=== PATIENT | male | born 1960 | race Caucasian/White ===

== ENCOUNTER 2019-01-20 06:27 | Emergency (ER) | payer OTHER ==
[~2019-01-20] VITALS: Ht 180.3 cm; Wt 113.4 kg
[2019-01-20 06:40] VITALS: BP 155/80
[2019-01-20] MEDS ORDERED: IV NORMAL SALINE 1000ML BAG 1,000 ML IV SCH (06:45)
[2019-01-20] MEDS ORDERED: ONDANSETRON PF 4 MG/2 ML VIAL. ONE (06:48)
[2019-01-20] MEDS ORDERED: fentaNYL PF VIAL 100 MCG/2 ML VIAL ONE (06:48)
[2019-01-20 06:56] LABS: BASO # 0.1 x10^3/uL (0.0-0.2); BASO % 1 % (0-3); EOS # 0.1 x10^3/uL (0.0-0.7); EOS % 1 % (0-3); HEMATOCRIT 40.8 % (39.0-53.0); HEMOGLOBIN 13.8 g/dL (13.0-17.5); LYMPH # 2.4 x10^3/uL (1.0-4.8); LYMPH % 20 % (24-48); MEAN CORPUSCULAR HEMOGLOBIN 32 pg (25-35); MEAN CORPUSCULAR HGB CONC 34 g/dL (31-37); MEAN CORPUSCULAR VOLUME 95 fL (79-100); MONO # 0.9 x10^3/uL (0.0-1.1); MONO % 8 % (0-9); NEUT # 8.4 x10^3/uL (1.8-7.7); NEUT % 70 % (31-73); PLATELET COUNT 307 x10^3/uL (140-400); RED CELL DISTRIBUTION WIDTH 14.7 % (11.5-14.5); WHITE BLOOD COUNT 11.9 x10^3/uL (4.0-11.0)
[2019-01-20] MEDS ORDERED: ONDANSETRON PF 4 MG/2 ML VIAL. IV ONE (07:00)
[2019-01-20] MEDS ORDERED: fentaNYL PF VIAL 100 MCG/2 ML VIAL IV ONE (07:00)
[2019-01-20 07:03] LABS: CALCIUM 9.1 mg/dL (8.5-10.1); CREATININE 0.9 mg/dL (0.7-1.3); POTASSIUM 3.3 mmol/L (3.5-5.1)
[2019-01-20 07:09] LABS: ALBUMIN 3.6 g/dL (3.4-5.0); ALBUMIN/GLOBULIN RATIO 0.9 (1.0-1.7); TOTAL BILIRUBIN 0.3 mg/dL (0.2-1.0); TOTAL PROTEIN 7.8 g/dL (6.4-8.2)
[2019-01-20] MEDS ORDERED: KETOROLAC 30 MG/ML VIAL. IV ONE (07:15)
[2019-01-20 07:42] LABS: BILIRUBIN,URINE NEGATIVE (NEG); CLARITY,URINE CLEAR; COLOR,URINE YELLOW; NITRITE,URINE NEGATIVE (NEG); PROTEIN,URINE NEGATIVE (NEG-TRACE); UROBILINOGEN,URINE 0.2 mg/dL (0.2 mg/dL)
[2019-01-20] MEDS ORDERED: HYDROmorphone 2 MG/ML VIAL IV ONE (07:45)
--- NOTE | 2019-01-20 07:51 | RAD ---
Examination: CT of the abdomen pelvis without contrast HISTORY: History of right flank pain COMPARISON: None available. TECHNIQUE: Axial CT images of the abdomen pelvis are performed without contrast. Coronal and sagittal reformats were performed Exposure: One or more of the following individualized dose reduction techniques were utilized for this examination: 1. Automated exposure control 2. Adjustment of the mA and/or kV according to patient size 3. Use of iterative reconstruction technique FINDINGS: Mild honeycombing changes identified in the bibasilar lungs likely prominent reticular interstitial lung markings. The evaluation of the solid organs is limited due to lack of IV contrast. The evaluation of bowel is limited due to lack of oral contrast. No evidence of free air identified in the abdomen. The visualized noncontrasted liver, adrenals grossly appears unremarkable. Calcified granulomas identified in the spleen. The gallbladder is mildly distended. Hyperdensity identified within the mildly distended gallbladder likely sludge or tiny stones. The stomach is minimally distended. The visualized pancreas grossly appears unremarkable. The small bowel is nondilated. Feces and gas noted in the colon. The urinary bladder is mildly distended. Mild right-sided hydronephrosis identified. There is a 4 mm calculus identified at the right ureterovesical junction. There is mild fat stranding identified about the right kidney. Severe degenerative changes identified in the lumbar spine. Lower lumbar hardware is identified. There is bony fusion of the L2-L3 vertebral bodies. Left hip prosthesis is identified. IMPRESSION: 1. 4 mm calculus identified in the right ureterovesical junction causing mild right-sided hydronephrosis and hydroureter. 2. Distended gallbladder with gallbladder sludge. Electronically signed by: Vahid Carter MD (01/20/2019 7:49 AM) [facility]
[2019-01-20 08:01] LABS: BACTERIA,URINE FEW /HPF (0-FEW); SQUAMOUS EPITHELIAL CELL,UR OCC /LPF; WBC,URINE OCC /HPF (0-4)
--- NOTE | 2019-01-20 08:18 | PHYS DOC ---
Past Medical History Past Medical History: Hypertension Past Surgical History: Hip Replacement Alcohol Use: None Drug Use: None Adult General Chief Complaint Chief Complaint: FLANK PAIN HPI HPI Patient is a 58 year old male who presents with complaining of right flank pain. Patient states he woke up at 4:30 this morning because of severe sharp right flank pain as a constant pain under control pain 10 over 10. Patient complaining of nausea without vomiting and denies urinary symptoms, fever and chills, abdominal pain, recent dehydration and history of kidney stone. Review of Systems Review of Systems Constitutional: Denies fever or chills [] Eyes: Denies change in visual acuity, redness, or eye pain [] HENT: Denies nasal congestion or sore throat [] Respiratory: Denies cough or shortness of breath [] Cardiovascular: No additional information not addressed in HPI [] GI: Denies abdominal pain, vomiting, bloody stools or diarrhea, reports nausea. [] : Denies dysuria or hematuria [] Musculoskeletal: Denies back pain or joint pain [] Integument: Denies rash or skin lesions [] Neurologic: Denies headache, focal weakness or sensory changes [] Endocrine: Denies polyuria or polydipsia [] All other systems were reviewed and found to be within normal limits, except as documented in this note. Current Medications Current Medications Current Medications Medications (Trade) Dose Ordered Sig/Baldemar Start Time Stop Time Status Last Admin Dose Admin Fentanyl Citrate (Fentanyl 2ml Vial) 100 mcg STK-MED ONCE 01/20/19 06:48 01/20/19 06:49 DC Hydromorphone HCl (Dilaudid) 1 mg 1X ONCE 01/20/19 07:45 01/20/19 07:46 DC 01/20/19 07:44 1 MG Ketorolac Tromethamine (Toradol 30mg Vial) 30 mg 1X ONCE 01/20/19 07:15 01/20/19 07:16 DC 01/20/19 07:23 30 MG Ondansetron HCl (Zofran) 4 mg STK-MED ONCE 01/20/19 06:48 01/20/19 06:49 DC Potassium Chloride (Klor-Con) 40 meq 1X ONCE 01/20/19 08:45 01/20/19 08:46 DC 01/20/19 09:14 40 MEQ Sodium Chloride 1,000 ml @ 1,000 mls/hr Q1H 01/20/19 06:45 01/20/19 07:44 DC 01/20/19 06:51 1,000 MLS/HR Tamsulosin HCl (Flomax) 0.4 mg 1X STAT 01/20/19 08:35 01/20/19 08:38 DC 01/20/19 09:14 0.4 MG Allergies Allergies Allergies Coded Allergies Type Severity Reaction Last Updated Verified No Known Drug Allergies 01/20/19 No Physical Exam Physical Exam Constitutional: Well developed, well nourished, moderately distress, non-toxic appearance. [] HENT: Normocephalic, atraumatic, oropharynx moist. Eyes: PERRLA, EOMI, conjunctiva normal, no discharge. [] Neck: Normal range of motion, no tenderness, supple, no stridor. [] Cardiovascular:Heart rate regular rhythm, no murmur [] Lungs & Thorax: Bilateral breath sounds clear to auscultation [] Abdomen: Bowel sounds normal, soft, no tenderness, no masses, no pulsatile masses. [] Skin: Warm, dry, no erythema, no rash. [] Back: No tenderness, no CVA tenderness. [] Extremities: No tenderness, no cyanosis, no clubbing, ROM intact, no edema. [] Neurologic: Alert and oriented X 3, normal motor function, normal sensory function, no focal deficits noted. [] Psychologic: Affect normal, judgement normal, mood normal. [] Current Patient Data Vital Signs Vital Signs Date Time Temp Pulse Resp B/P (MAP) Pulse Ox O2 Delivery O2 Flow Rate FiO2 01/20/19 06:51 16 98 Room Air 01/20/19 06:40 99.5 89 155/80 (105) 99.5 Lab Values Laboratory Tests Test 01/20/19 06:43 01/20/19 07:20 White Blood Count 11.9 x10^3/uL (4.0-11.0) H Red Blood Count 4.30 x10^6/uL (4.30-5.70) Hemoglobin 13.8 g/dL (13.0-17.5) Hematocrit 40.8 % (39.0-53.0) Mean Corpuscular Volume 95 fL (79-100) Mean Corpuscular Hemoglobin 32 pg (25-35) Mean Corpuscular Hemoglobin Concent 34 g/dL (31-37) Red Cell Distribution Width 14.7 % (11.5-14.5) H Platelet Count 307 x10^3/uL (140-400) Neutrophils (%) (Auto) 70 % (31-73) Lymphocytes (%) (Auto) 20 % (24-48) L Monocytes (%) (Auto) 8 % (0-9) Eosinophils (%) (Auto) 1 % (0-3) Basophils (%) (Auto) 1 % (0-3) Neutrophils # (Auto) 8.4 x10^3/uL (1.8-7.7) H Lymphocytes # (Auto) 2.4 x10^3/uL (1.0-4.8) Monocytes # (Auto) 0.9 x10^3/uL (0.0-1.1) Eosinophils # (Auto) 0.1 x10^3/uL (0.0-0.7) Basophils # (Auto) 0.1 x10^3/uL (0.0-0.2) Sodium Level 141 mmol/L (136-145) Potassium Level 3.3 mmol/L (3.5-5.1) L Chloride Level 104 mmol/L (98-107) Carbon Dioxide Level 26 mmol/L (21-32) Anion Gap 11 (6-14) Blood Urea Nitrogen 15 mg/dL (8-26) Creatinine 0.9 mg/dL (0.7-1.3) Estimated GFR (Cockcroft-Gault) 87.0 BUN/Creatinine Ratio 17 (6-20) Glucose Level 118 mg/dL (70-99) H Calcium Level 9.1 mg/dL (8.5-10.1) Total Bilirubin 0.3 mg/dL (0.2-1.0) Aspartate Amino Transferase (AST) 22 U/L (15-37) Alanine Aminotransferase (ALT) 25 U/L (16-63) Alkaline Phosphatase 59 U/L (46-116) Total Protein 7.8 g/dL (6.4-8.2) Albumin 3.6 g/dL (3.4-5.0) Albumin/Globulin Ratio 0.9 (1.0-1.7) L Urine Collection Type Unknown Urine Color Yellow Urine Clarity Clear Urine pH 5.0 Urine Specific Morral >=1.030 Urine Protein Negative mg/dL (NEG-TRACE) Urine Glucose (UA) Negative mg/dL (NEG) Urine Ketones (Stick) Negative mg/dL (NEG) Urine Blood Large (NEG) Urine Nitrite Negative (NEG) Urine Bilirubin Negative (NEG) Urine Urobilinogen Dipstick 0.2 mg/dL (0.2 mg/dL) Urine Leukocyte Esterase Negative (NEG) Urine RBC 11-20 /HPF (0-2) Urine WBC Occ /HPF (0-4) Urine Squamous Epithelial Cells Occ /LPF Urine Bacteria Few /HPF (0-FEW) Urine Mucus Slight /LPF Laboratory Tests 01/20/19 06:43 Laboratory Tests 01/20/19 06:43 EKG EKG [] Radiology/Procedures Radiology/Procedures [facility] [address] [place] [address] IMAGING REPORT Signed PATIENT: KIRAN DIAZ ACCOUNT: [id number] : 1960 LOCATION: ER AGE: 58 SEX: M EXAM STATUS: REG ER ORD. PHYSICIAN: MARY MARADIAGA MD REASON: right flank pain PROCEDURE: CT ABDOMEN PELVIS WO CONTRAST Examination: CT of the abdomen pelvis without contrast HISTORY: History of right flank pain COMPARISON: None available. TECHNIQUE: Axial CT images of the abdomen pelvis are performed without contrast. Coronal and sagittal reformats were performed Exposure: One or more of the following individualized dose reduction techniques were utilized for this examination: 1. Automated exposure control 2. Adjustment of the mA and/or kV according to patient size 3. Use of iterative reconstruction technique FINDINGS: Mild honeycombing changes identified in the bibasilar lungs likely prominent reticular interstitial lung markings. The evaluation of the solid organs is limited due to lack of IV contrast. The evaluation of bowel is limited due to lack of oral contrast. No evidence of free air identified in the abdomen. The visualized noncontrasted liver, adrenals grossly appears unremarkable. Calcified granulomas identified in the spleen. The gallbladder is mildly distended. Hyperdensity identified within the mildly distended gallbladder likely sludge or tiny stones. The stomach is minimally distended. The visualized pancreas grossly appears unremarkable. The small bowel is nondilated. Feces and gas noted in the colon. The urinary bladder is mildly distended. Mild right-sided hydronephrosis identified. There is a 4 mm calculus identified at the right ureterovesical junction. There is mild fat stranding identified about the right kidney. Severe degenerative changes identified in the lumbar spine. Lower lumbar hardware is identified. There is bony fusion of the L2-L3 vertebral bodies. Left hip prosthesis is identified. IMPRESSION: 1. 4 mm calculus identified in the right ureterovesical junction causing mild right-sided hydronephrosis and hydroureter. 2. Distended gallbladder with gallbladder sludge. Electronically signed by: Vahid Carter MD (01/20/2019 7:49 AM) [facility] DICTATED and SIGNED BY: VAHID CARTER MD DATE: 01/20/19 0749 Course & Med Decision Making Course & Med Decision Making Pertinent Labs and Imaging studies reviewed. (See chart for details) Evaluation of patient in ER showed 58-year-old male patient with onset of right flank pain. Patient had IV fluid, Zofran, fentanyl, Toradol and Dilaudid with improvement of his pain. Labs showed mild hypokalemia and hematuria. CT of abdomen and pelvis showed 4 mm stone in the UV junction with mild hydronephrosis. Patient was informed about the test results needs to increase fluid intake and activity and follow up with urologist. Urine strainer was provided. I've spoken with the patient and/or caregivers. I've explained the patient's condition, diagnosis and treatment plan based on information available to me at this time. I've answered the patient's and/or caregivers questions and addressed any concerns. The patient and/or caregivers have a good understanding the patient's diagnosis, condition and treatment plan as can be expected at this point. Vital signs have been stabilized. The patient's condition is stable for discharge from the emergency department. The patient will pursue further outpatient evaluation with her primary care provider or other designated consulting physician as outlined in the discharge instructions. Patient and/or caregivers are agreeable to this plan of care and follow-up instructions have been explained in detail. The patient and/or caregi vers have received these instructions in written format and expressed understanding of these discharge instructions. The patient and her caregivers are aware that if any significant change in condition or worsening of symptoms should prompt him to immediately return to this of the closest emergency department. If an emergent department is not readily available I would encourage him to call 911. Jany Disclaimer Jany Disclaimer This electronic medical record was generated, in whole or in part, using a voice recognition dictation system. Departure Departure Impression: Primary Impression: Renal colic on right side Additional Impressions: Ureterolithiasis Hypokalemia Disposition: HOME, SELF-CARE (0 FRANK) Condition: IMPROVED Referrals: UNKNOWN PCP NAME (PCP) Patient Instructions: Diet for Kidney Stones, Hypokalemia, Kidney Stones Additional Instructions: Drink plenty of liquids Follow-up with your primary care physician in 3-5 days Return to ER if not getting better Follow-up with on-call urologist tomorrow Strain all of your urine Continue home hydrocodone for pain Scripts Ibuprofen (IBUPROFEN) 800 Mg Tablet 800 MG PO PRN Q8HRS PRN for INFLAMMATION, #20 TAB Prov: MARY MARADIAGA MD 01/20/19 Tamsulosin Hcl (FLOMAX) 0.4 Mg Cap.er.24h 1 CAP PO DAILY, #14 CAP 0 Refills Prov: MARY MARADIAGA MD 01/20/19 Problem Qualifiers MARY MARADIAGA MD Jan 20, 2019 08:18
[2019-01-20] MEDS ORDERED: TAMSULOSIN 0.4 MG CAP.ER.24H. PO STA (08:35)
[2019-01-20] MEDS ORDERED: POTASSIUM CHLORIDE 20 MEQ TABLET.ER. PO ONE (08:45)
[2019-01-20] MEDS ORDERED: TAMS0.4C97 PO (08:50)
[2019-01-20] MEDS ORDERED: IBUP-1060 PO (08:50)
== END 2019-01-20 09:29 | disposition home or self-care (01) ==
LOC: ER 06:27
DX: N13.2 Hydronephrosis with renal and ureteral calculous obstruction (principal); E87.6 Hypokalemia; I10 Essential (primary) hypertension; Z96.649 Presence of unspecified artificial hip joint
CPT/HCPCS: 36415; 74176; 80053; 81001; 85025; 96374; 96375; 99285; J1170; J1885; J2405; J3010; J7030

== ENCOUNTER → 2021-05-19 | Outpatient (CLI) | payer MEDICARE, OTHER ==
[~2021-05-19] MED LIST: IBUP-1060 PO; TAMS0.4C97 PO
--- NOTE | 2021-05-21 09:41 | RAD ---
Right lower extremity arterial duplex ultrasound 05/21/2021 INDICATION: Right lateral mid calf ulcer x2 months. COMPARISON STUDY: None. Discussion: Ultrasound evaluation of the major arteries of the right lower extremity was performed in cluding color Doppler imaging spectral analysis. Patchy areas of atherosclerotic vascular calcification is seen throughout the major arteries of the r ight lower extremity. Normal waveform morphology is seen throughout the major arteries of the right l ower extremity. No focal elevation in velocity consistent hemodynamically significant atherosclerotic vascular narrowing is seen. Right common femoral artery is patent. Right deep femoral artery is patent Right SFA is patent. Right popliteal artery is calcified but patent. Right posterior tibial artery is patent. Right peroneal artery is patent. Right dorsalis pedis artery is patent. IMPRESSION: Mild diffuse atherosclerotic vascular disease without sonographic evidence of hemodynamic ally significant stenosis involving the major arteries of the right lower extremity Electronically signed by: Benny Teixeira MD (05/21/2021 9:38 AM) [id number]
== END ==
LOC: US 09:34
PROVIDERS: ATTEND Nurse Practitioner Family
DX: I70.201 Unspecified atherosclerosis of native arteries of extremities, right leg (principal); L97.219 Non-pressure chronic ulcer of right calf with unspecified severity; M79.89 Other specified soft tissue disorders
CPT/HCPCS: 93922; 93926

== ENCOUNTER 2021-08-30 10:06 | Observation (INO) | payer MEDICARE, OTHER ==
[~2021-08-30] VITALS: Ht 182.9 cm; Wt 116.0 kg
--- NOTE | 2021-08-30 10:29 | PHYS DOC ---
Past Medical History Past Medical History: Hypertension Past Surgical History: Hip Replacement Smoking Status: Never Smoker Alcohol Use: None Drug Use: None General Adult EDM: Chief Complaint: CHEST PAIN HPI: HPI: Patient is a 61 year old male who presents with 24 hours of intermittent left- sided chest pain that is sharp and shooting and goes into his armpit. He states he "might" have felt palpitations on his way here. He states movement does not make it worse and it does not hurt only with breathing. He states that he could just be sitting there and it begins. He is not on blood thinners and has not taken any aspirin. He has not yet taken his blood pressure medication this morning. He cannot remember the name of the blood pressure medication he is currently on. Rates his pain currently a 5 out of 10. States he has had some shortness of breath over the last month. Patient denies fever, cough, abdominal pain, nausea, vomiting, diarrhea, back pain, headache, syncope, dizziness, injury to his chest or any heavy lifting, numbness or tingling, focal weakness, vision change. History of chronic back pain, cellulitis of his leg with ulceration, high blood pressure. Review of Systems: Review of Systems: Constitutional: Denies fever or chills. [] Eyes: Denies change in visual acuity. [] HENT: Denies nasal congestion or sore throat. [] Respiratory: Denies cough or +shortness of breath x1 month. [] Cardiovascular: + chest pain or denies edema. [] GI: Denies abdominal pain, nausea, vomiting, bloody stools or diarrhea. [] : Denies dysuria. [] Musculoskeletal: Denies back pain or joint pain. [] Integument: Denies rash. [] Neurologic: Denies headache, focal weakness or sensory changes. [] Endocrine: Denies polyuria or polydipsia. [] Lymphatic: Denies swollen glands. [] Psychiatric: Denies depression or anxiety. [] Heart Score: C/O Chest Pain: Yes HEART Score for Chest Pain: HEART Score for Chest Pain Response (Comments) Value History Moderately Suspicious 1 ECG Nonspecific Repolarizatio 1 Age >45 - < 65 1 Risk Factors 1 or 2 Risk Factors 1 Troponin < Normal Limit 0 Total 4 Risk Factors: Risk Factors: DM, Current or recent (<one month) smoker, HTN, HLP, family history of CAD, obesity. Risk Scores: Score 0 - 3: 2.5% MACE over next 6 weeks - Discharge Home Score 4 - 6: 20.3% MACE over next 6 weeks - Admit for Clinical Observation Score 7 - 10: 72.7% MACE over next 6 weeks - Early Invasive Strategies Allergies: Allergies: Allergies Coded Allergies Type Severity Reaction Last Updated Verified No Known Drug Allergies 08/30/21 No Physical Exam: PE: Constitutional: Well developed, well nourished, no acute distress, non-toxic appearance. [] HENT: Normocephalic, atraumatic, bilateral external ears normal, oropharynx moist, no oral exudates, nose normal. [] Eyes: PERRLA, EOMI, conjunctiva normal, no discharge. [] Neck: Normal range of motion, no tenderness, supple, no stridor. [] Cardiovascular:Heart rate regular tachycardia rhythm, no murmur [] Lungs & Thorax: Bilateral upper breath sounds clear and lower diminished to auscultation [] Abdomen: Bowel sounds normal, soft, no tenderness, no masses, no pulsatile masses. [] Skin: Warm, dry, no erythema, no rash. [] Back: No tenderness, no CVA tenderness. [] Extremities: No tenderness, no cyanosis, no clubbing, ROM intact, no edema. [] Neurologic: Alert and oriented X 3, normal motor function, normal sensory function, no focal deficits noted. [] Psychologic: Affect normal, judgement normal, mood normal. [] EKG: EK AND READ BY DR PATEL SINUS RHYTHM AND NO STEMI [address] PATEL SINUS RHYTHM AND NO STEMI Radiology/Procedures: Radiology/Procedures: [] Impression: [facility] [address] [place], [place] [id number] IMAGING REPORT Signed PATIENT: KIRAN DIAZ PACCOUNT: [id number] : 1960 LOCATION: ER AGE: 61 SEX: M EXAM STATUS: PRE ER ORD. PHYSICIAN: ESTHER VARNER APRN REASON: CHEST PAIN PROCEDURE: PORTABLE CHEST 1V EXAM: Chest, single view. HISTORY: Chest pain. COMPARISON: None. FINDINGS: A frontal view of the chest is obtained. There is diffuse interstitial infiltrate. There is a small right pleural effusion. The heart is normal in size. There is no pneumothorax. There are multiple chronic appearing rib fractures. IMPRESSION: Diffuse interstitial infiltrate and small right pleural effusion. This may be superimposed on chronic interstitial changes. Electronically signed by: Jackie Kemp MD (08/30/2021 10:36 AM) [id number] DICTATED and SIGNED BY: JACKIE KEMP MD DATE: 08/30/21 [id number] [facility] [address] [place] [address] IMAGING REPORT Signed PATIENT: KIRAN DIAZ PACCOUNT: [id number] : 1960 LOCATION: ER AGE: 61 SEX: M EXAM STATUS: REG ER ORD. PHYSICIAN: ESTHER VARNER APRN REASON: TACHYCARDIA, CHEST PAIN, SOA PROCEDURE: CT ANGIOGRAPHY CHEST CTA CHEST INDICATION: TACHYCARDIA, CHEST PAIN, SOA. OMNI 350 100 MLS injected twice, poor vascular flow / History: . Comparison: None. TECHNIQUE: Following the uneventful administration of intravenous contrast, 100 cc Omnipaque 350, axial CT sections were obtained through the lungs and upper abdomen. Multiplanar reconstructions and MIP images were obtained. PQRS compliance statement: One or more of the following individualized dose reduction techniques were utilized for this examination: 1. Automated exposure control 2. Adjustment of the mA and/or kV according to patient size 3. Use of iterative reconstruction technique FINDINGS: Pulmonary arteries: No large central pulmonary thromboembolic disease. Segmental and subsegmental branches not well evaluated due to suboptimal contrast opacification. Lungs and Airways: No pulmonary mass or consolidation. Bilateral subpleural reticulation, architectural distortion, and lower lung predominant traction bronchiectasis. Honeycombing in the lung bases. Pleura: The pleural spaces are normal. Heart and Mediastinum: The visualized thyroid is normal in size and attenuation. No axillary or supraclavicular lymphadenopathy. No mediastinal, hilar or retrocrural lymphadenopathy. Calcified mediastinal and hilar lymph nodes consistent with remote granulomatous disease. Normal cardiac size. Coronary artery atherosclerotic disease. Normal caliber thoracic aorta. Diminutive calcified SVC. Prominent chest wall and mediastinal venous collaterals.. Abdomen: Cholelithiasis. Bones and Soft Tissues: Degenerative changes of the spine. Gynecomastia. IMPRESSION: 1. No large central pulmonary thromboembolic disease. Segmental and subsegmental branches not well evaluated due to suboptimal contrast opacification. 2. Findings of interstitial lung disease. 3. 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 Electronically signed by: Steve Mars MD (08/30/2021 12:10 PM) [id number] DICTATED and SIGNED BY: STEVE MARS MD DATE: 08/30/21 [id number] Course & Med Decision Making: Course & Med Decision Making Pertinent Labs and Imaging studies reviewed. (See chart for details) See HPI. Alert and oriented x4. Ambulatory steady gait. Speaks in full clear sentences. No extremity edema. Afebrile. Skin pink warm and dry. Chest pain is not reproducible with palpation or movement. Lungs are clear developed and diminished in lower lobes. He is tachycardic. Blood work so far is unremarkable. His heart score is a 4. Nitro did help with his chest pain. CT chest showed: IMPRESSION: 1. No large central pulmonary thromboembolic disease. Segmental and subsegmental branches not well evaluated due to suboptimal contrast opacification. 2. Findings of interstitial lung disease. 3. 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 Chest x-ray showed: Possible new infiltrate on top of his chronic interstitial lung disease. Patient will be admitted for for chest pain rule out. I went ahead and started antibiotics for infiltrates. He is satting around 93% on room air. Patient does have a white count of 13. 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 [] Dragon Disclaimer: Dragethel Disclaimer: This electronic medical record was generated, in whole or in part, using a voice recognition dictation system. Departure Departure Impression: Primary Impression: Pleural effusion associated with pulmonary infection Additional Impression: Chest pain Qualified Codes: R07.9 - Chest pain, unspecified Disposition: ADMITTED INPATIENT Admitting Physician: JACI Condition: STABLE Referrals: UNKNOWN PCP NAME (PCP) ESTHER VARNER APRN Aug 30, 2021 10:28
[2021-08-30] MEDS ORDERED: IV NORMAL SALINE 1000ML BAG 1,000 ML IV SCH (10:30)
[2021-08-30] MEDS ORDERED: ASPIRIN 325 MG TABLET PO ONE (10:30)
[2021-08-30] MEDS ORDERED: NITROGLYCERIN SUBLINGUAL 0.4 MG BOTTLE OF 25. SL PRN (10:30)
[2021-08-30 10:38] LABS: BASO # 0.1 x10^3/uL (0.0-0.2); BASO % 1 % (0-3); EOS # 0.2 x10^3/uL (0.0-0.7); EOS % 2 % (0-3); HEMOGLOBIN 15.9 g/dL (13.0-17.5); LYMPH # 2.4 x10^3/uL (1.0-4.8); LYMPH % 19 % (24-48); MEAN CORPUSCULAR HEMOGLOBIN 32 pg (25-35); MEAN CORPUSCULAR HGB CONC 33 g/dL (31-37); MEAN CORPUSCULAR VOLUME 96 fL (79-100); MONO # 1.3 x10^3/uL (0.0-1.1); MONO % 10 % (0-9); NEUT # 8.9 x10^3/uL (1.8-7.7); NEUT % 69 % (31-73); PLATELET COUNT 350 x10^3/uL (140-400); RED BLOOD COUNT 5.01 x10^6/uL (4.30-5.70); RED CELL DISTRIBUTION WIDTH 13.9 % (11.5-14.5)
--- NOTE | 2021-08-30 10:38 | RAD ---
EXAM: Chest, single view. HISTORY: Chest pain. COMPARISON: None. FINDINGS: A frontal view of the chest is obtained. There is diffuse interstitial infiltrate. There is a small right pleural effusion. The heart is normal in size. There is no pneumothorax. There are mul tiple chronic appearing rib fractures. IMPRESSION: Diffuse interstitial infiltrate and small right pleural effusion. This may be superimpose d on chronic interstitial changes. Electronically signed by: Jackie Hills MD (08/30/2021 10:36 AM) [id number]
[2021-08-30 10:45] LABS: CALCIUM 8.9 mg/dL (8.5-10.1); CREATININE 0.9 mg/dL (0.7-1.3); GFR 86.1; POTASSIUM 3.9 mmol/L (3.5-5.1)
[2021-08-30 10:51] LABS: ALBUMIN/GLOBULIN RATIO 0.9 (1.0-1.7); MAGNESIUM 1.9 mg/dL (1.8-2.4); TOTAL BILIRUBIN 0.5 mg/dL (0.2-1.0); TOTAL PROTEIN 8.5 g/dL (6.4-8.2)
[2021-08-30] MEDS ORDERED: IOHEXOL 350 MG/ML 100 ML VIAL. IV ONE (11:00)
[2021-08-30] MEDS ORDERED: CONTRAST GIVEN. MC PRN (11:15)
--- NOTE | 2021-08-30 12:12 | RAD ---
CTA CHEST INDICATION: TACHYCARDIA, CHEST PAIN, SOA. OMNI 350 100 MLS injected twice, poor vascular flow / His tory: . Comparison: None. TECHNIQUE: Following the uneventful administration of intravenous contrast, 100 cc Omnipaque 350, axi al CT sections were obtained through the lungs and upper abdomen. Multiplanar reconstructions and MIP images were obtained. PQRS compliance statement: One or more of the following individualized dose reduction techniques were utilized for this examinat ion: 1. Automated exposure control 2. Adjustment of the mA and/or kV according to patient size 3. Use of iterative reconstruction technique FINDINGS: Pulmonary arteries: No large central pulmonary thromboembolic disease. Segmental and subsegmental bra nches not well evaluated due to suboptimal contrast opacification. Lungs and Airways: No pulmonary mass or consolidation. Bilateral subpleural reticulation, architectur al distortion, and lower lung predominant traction bronchiectasis. Honeycombing in the lung bases. Pleura: The pleural spaces are normal. Heart and Mediastinum: The visualized thyroid is normal in size and attenuation. No axillary or supra clavicular lymphadenopathy. No mediastinal, hilar or retrocrural lymphadenopathy. Calcified mediastin al and hilar lymph nodes consistent with remote granulomatous disease. Normal cardiac size. Coronary artery atherosclerotic disease. Normal caliber thoracic aorta. Diminutive calcified SVC. Prominent ch est wall and mediastinal venous collaterals.. Abdomen: Cholelithiasis. Bones and Soft Tissues: Degenerative changes of the spine. Gynecomastia. IMPRESSION: 1. No large central pulmonary thromboembolic disease. Segmental and subsegmental branches not well ev aluated due to suboptimal contrast opacification. 2. Findings of interstitial lung disease. 3. Diminutive calcified SVC with prominent chest wall and mediastinal venous collaterals, likely high reach operator porsha SVC occlusion. Electronically signed by: Humble Mars MD (08/30/2021 12:10 PM) [id number]
[2021-08-30] MEDS ORDERED: cefTRIAXone IV Push 1 GM VIAL. IVP ONE (13:30)
[2021-08-30] MEDS ORDERED: AZITHROMYCIN 500 MG in IV NORMAL SALINE 250ML 250 ML IV ONE (13:30)
[2021-08-30] MEDS ORDERED: CALCIUM CARBONATE 500 MG TAB.CHEW PO PRN (14:00)
[2021-08-30] MEDS ORDERED: oxyCODONE/APAP 5/325 1 TAB TABLET PO PRN ×2 (14:00)
[2021-08-30] MEDS ORDERED: ELECTROLYTE (NON-ICU) PROTOCOL. MC PRN (14:00)
[2021-08-30] MEDS ORDERED: ONDANSETRON PF 4 MG/2 ML VIAL. IVP PRN (14:00)
[2021-08-30] MEDS ORDERED: ZOLPIDEM 5 MG TABLET. PO PRN (14:00)
[2021-08-30 14:02] LABS: INFLUENZA A PATIENT NEGATIVE (NEGATIVE); INFLUENZA B PATIENT NEGATIVE (NEGATIVE)
[2021-08-30 14:10] LABS: BILIRUBIN,URINE NEGATIVE (NEG); CLARITY,URINE CLEAR; COLOR,URINE YELLOW; NITRITE,URINE NEGATIVE (NEG); PROTEIN,URINE NEGATIVE (NEG-TRACE); UROBILINOGEN,URINE 0.2 mg/dL (0.2 mg/dL)
[2021-08-30 14:18] LABS: BARBITURATES NEG (NEG); BENZODIAZEPINES NEG (NEG); CANNABINOIDS NEG (NEG); COCAINE NEG (NEG); METHADONE NEG (NEG); OPIATES NEG (NEG); PHENCYCLIDINE NEG (NEG)
[2021-08-30 14:19] LABS: AMPHETAMINE/METHAMPHETAMINE NEG (NEG)
[2021-08-30 14:21] LABS: BACTERIA,URINE 0 /HPF (0-FEW); RBC,URINE 0 /HPF (0-2); WBC,URINE 0 /HPF (0-4)
[2021-08-30] MEDS: TAMSULOSIN 0.4 MG CAP.ER.24H. PO SCH (15:37)
[2021-08-30] MEDS: HEPARIN for SUB-Q USE 5,000 UNIT/ML VIAL. SQ SCH ×2 (15:39→21:14)
[2021-08-30] MEDS ORDERED: TIZA4CAP PO (16:32)
[2021-08-30] MEDS ORDERED: LISI20TA18 PO (16:32)
[2021-08-30] MEDS ORDERED: ASPI-630 PO (16:32)
[2021-08-30] MEDS ORDERED: AMLO-186 PO (16:32)
[2021-08-30] MEDS ORDERED: TRIA1TAB3 PO (16:32)
[2021-08-30] MEDS ORDERED: SIMV20TA18 PO (16:32)
[2021-08-30] MEDS ORDERED: ACET325T9 PO (16:32)
[2021-08-30 16:40] VITALS: BP 141/73
[2021-08-30] MEDS ORDERED: tiZANidine 4 MG TABLET. PO PRN (17:00)
--- NOTE | 2021-08-30 17:53 | PDOC1 ---
History and Physical Date of Service: DOS: DATE: 08/30/21 TIME: 17:43 Chief Complaint: Chief Complain: SOB, chest pain History of Present Illness: HPI: Patient is a 61-year-old white male presented to the emergency room today due to 1 day history of chest pain and 1 month history of shortness of breath. Patient reports that yesterday started having left-sided chest pain with radiation into his left axilla. No rhyme or reason to when it starts according to him. Not particularly worse with exertion and he says he definitely has the pain at rest as well. He does have a history of hypertension. Denies any specific cardiac history, no irregular heartbeat no home blood thinners. CT scan in the emergency room showed interstitial lung disease. Patient denies any history of smoking. 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 Said it was 3 months at a time for a total of 9 months. Reports it was very nahomy he said they frequently would take their masks off when they clogged up after a few minutes of wearing. Past Medical/Surgical History: PMH/PSH: Past Medical History: Hypertension Past Surgical History: Hip Replacement Smoking Status: Never Smoker Alcohol Use: None Drug Use: None Allergies: Allergies: Coded Allergies: No Known Drug Allergies (Unverified , 08/30/21) Family History: Family History: HTN Current Medications: Current Medications Current Medications Aspirin (Elio Aspirin) 325 mg 1X ONCE PO Last administered on 08/30/21at 10:50; Start 08/30/21 at 10:30; Stop 08/30/21 at 10:31; Status DC Sodium Chloride 1,000 ml @ 1,000 mls/hr Q1H IV Last administered on 08/30/21at 10:49; Start 08/30/21 at 10:30; Stop 08/30/21 at 11:29; Status DC Nitroglycerin (Nitrostat) 0.4 mg PRN Q5MIN PRN SL CHEST PAIN Last administered on 08/30/21at 10:50; Start 08/30/21 at 10:30 Iohexol (Omnipaque 350 Mg/ml) 100 ml 1X ONCE IV Last administered on 08/30/21at 11:19; Start 08/30/21 at 11:00; Stop 08/30/21 at 11:03; Status DC Info (CONTRAST GIVEN -- Rx MONITORING) 1 each PRN DAILY PRN MC SEE COMMENTS; Start 08/30/21 at 11:15; Stop 09/01/21 at 11:14 Azithromycin 500 mg/Sodium Chloride 250 ml @ 250 mls/hr 1X ONCE IV Last administered on 08/30/21at 13:30; Start 08/30/21 at 13:30; Stop 08/30/21 at 14:29; Status DC Ceftriaxone Sodium (Rocephin) 1 gm 1X ONCE IVP Last administered on 08/30/21at 14:18; Start 08/30/21 at 13:30; Stop 08/30/21 at 13:31; Status DC Tamsulosin HCl (Flomax) 0.4 mg DAILY PO Last administered on 08/30/21at 15:37; Start 08/30/21 at 15:00 Ondansetron HCl (Zofran) 4 mg PRN Q6HRS PRN IVP NAUSEA/VOMITING; Start 08/30/21 at 14:00 Calcium Carbonate/ Glycine (Tums) 500 mg PRN Q3HRS PRN PO UPSET STOMACH; Start 08/30/21 at 14:00 Zolpidem Tartrate (Ambien) 5 mg PRN QHS PRN PO INSOMNIA, MAY REPEAT IN 1HR; Start 08/30/21 at 14:00 Info (Non-Icu Electrolyte Protocol) 1 ea PRN DAILY PRN MC SEE COMMENTS; Start 08/30/21 at 14:00 Oxycodone/ Acetaminophen (Percocet 5/325) 1 tab PRN Q4HRS PRN PO MILD PAIN, 1ST CHOICE; Start 08/30/21 at 14:00 Oxycodone/ Acetaminophen (Percocet 5/325) 2 tab PRN Q4HRS PRN PO MODERATE PAIN, SEVERE PAIN; Start 08/30/21 at 14:00 Acetaminophen (Tylenol) 650 mg PRN Q6HRS PRN PO Headaches, Temp > 101.5F; Start 08/30/21 at 14:00 Senna/Docusate Sodium (Senna Plus) 1 tab BID PO ; Start 08/30/21 at 21:00 Heparin Sodium (Porcine) (Heparin Sodium) 5,000 unit Q8HRS SQ Last administered on 2/21/22at 15:39; Start 08/30/21 at 14:00 Amlodipine Besylate (Norvasc) 5 mg DAILY PO ; Start 08/31/21 at 09:00 Aspirin (Aspirin Chewable) 81 mg DAILY PO ; Start 08/31/21 at 09:00 Lisinopril (Prinivil) 20 mg DAILY PO ; Start 08/31/21 at 09:00 Simvastatin (Zocor) 20 mg HS PO ; Start 08/30/21 at 21:00 Triamterene/HCTZ (Maxzide 37.5/ 25mg) 1 tab DAILY PO ; Start 08/31/21 at 09:00 Tizanidine HCl (Zanaflex) 4 mg PRN BID PRN PO MUSCLE SPASMS; Start 08/30/21 at 17:00 Active Scripts Active Reported Tylenol (Acetaminophen) 325 Mg Tablet 500 Mg PO PRN Q6HRS PRN Aspirin 81 Mg Tab.chew 81 Mg PO DAILY Tizanidine Hcl 4 Mg Capsule 4 Mg PO BID PRN Amlodipine Besylate 5 Mg Tablet 5 Mg PO DAILY Simvastatin 20 Mg Tablet 20 Mg PO HS Triamterene-Hctz 37.5-25 Mg Tb (Triamterene/Hydrochlorothiazid) 1 Each Tablet 1 Tab PO DAILY Lisinopril 20 Mg Tablet 20 Mg PO DAILY ROS: Review of Systems Review of System Unless noted in HPI 14 point review of systems was negative Physical Exam: Vital Signs: Vital Signs Date Time Temp Pulse Resp B/P (MAP) Pulse Ox O2 Delivery O2 Flow Rate FiO2 08/30/21 16:40 98.3 89 17 141/73 (95) 94 Room Air 98.3 Physcial Exam: GEN: No apparent distress. Alert and oriented HEENT: Normal cephalic, atraumatic, external auditory canals are patent EYES: Extraocular muscles are intact, pupil are equally round and reactive to light and accommodation MUSCULOSKELETAL: Well developed , well nourished, good range of motion ENDOCRINE: No thyromegaly was palpated LYMPHATICS: No cervical chain or axillary nodes were noted HEMATOPOIETIC: No bruising NECK: Supple, no JVD, no thyromegaly was noted LUNGS: Clear to auscultation in all lung peters without rhonchi or wheezing HEART: RRR, S!, S2 present. Peripheral pulses intact, no obvious murmurs noted ABDOMEN: Soft, nontender. Positive bowel sounds, no organomegaly, normal bowel sounds EXTREMITIES: Chronic changes from previous wounds NEUROLOGIC: Normal speech and tone. A&O x 3, moves all extremities, no obvious focal deficits PSYCHIATRIC: Normal affect, normal mood. Stable SKIN: No ulcerations or rashes, good skin turgor, no jaundice VASCULAR: Good capillary refill, neurovascular bundle appears to be intact Labs: Labs: Laboratory Tests Test 08/30/21 10:15 08/30/21 13:25 08/30/21 13:30 08/30/21 13:50 White Blood Count 13.0 x10^3/uL (4.0-11.0) Red Blood Count 5.01 x10^6/uL (4.30-5.70) Hemoglobin 15.9 g/dL (13.0-17.5) Hematocrit 48.0 % (39.0-53.0) Mean Corpuscular Volume 96 fL (79-100) Mean Corpuscular Hemoglobin 32 pg (25-35) Mean Corpuscular Hemoglobin Concent 33 g/dL (31-37) Red Cell Distribution Width 13.9 % (11.5-14.5) Platelet Count 350 x10^3/uL (140-400) Neutrophils (%) (Auto) 69 % (31-73) Lymphocytes (%) (Auto) 19 % (24-48) Monocytes (%) (Auto) 10 % (0-9) Eosinophils (%) (Auto) 2 % (0-3) Basophils (%) (Auto) 1 % (0-3) Neutrophils # (Auto) 8.9 x10^3/uL (1.8-7.7) Lymphocytes # (Auto) 2.4 x10^3/uL (1.0-4.8) Monocytes # (Auto) 1.3 x10^3/uL (0.0-1.1) Eosinophils # (Auto) 0.2 x10^3/uL (0.0-0.7) Basophils # (Auto) 0.1 x10^3/uL (0.0-0.2) Sodium Level 135 mmol/L (136-145) Potassium Level 3.9 mmol/L (3.5-5.1) Chloride Level 98 mmol/L (98-107) Carbon Dioxide Level 26 mmol/L (21-32) Anion Gap 11 (6-14) Blood Urea Nitrogen 19 mg/dL (8-26) Creatinine 0.9 mg/dL (0.7-1.3) Estimated GFR (Cockcroft-Gault) 86.1 BUN/Creatinine Ratio 21 (6-20) Glucose Level 93 mg/dL (70-99) Calcium Level 8.9 mg/dL (8.5-10.1) Magnesium Level 1.9 mg/dL (1.8-2.4) Total Bilirubin 0.5 mg/dL (0.2-1.0) Aspartate Amino Transf (AST/SGOT) 37 U/L (15-37) Alanine Aminotransferase (ALT/SGPT) 34 U/L (16-63) Alkaline Phosphatase 70 U/L (46-116) Troponin I High Sensitivity 11 ng/L (4-75) 16 ng/L (4-75) IA-Vca-U-Type Natriuretic Peptide 36 pg/mL (0-124) Total Protein 8.5 g/dL (6.4-8.2) Albumin 4.0 g/dL (3.4-5.0) Albumin/Globulin Ratio 0.9 (1.0-1.7) Lipase 147 U/L (73-393) Thyroid Stimulating Hormone (TSH) 2.740 uIU/mL (0.358-3.74) Influenza Type A Antigen Negative (NEGATIVE) Influenza Type B Antigen Negative (NEGATIVE) SARS-CoV-2 Antigen (Rapid) Negative (NEGATIVE) Urine Collection Type Unknown Urine Color Yellow Urine Clarity Clear Urine pH 5.0 (<5.0-8.0) Urine Specific [place] >=1.030 (1.000-1.030) Urine Protein Negative mg/dL (NEG-TRACE) Urine Glucose (UA) Negative mg/dL (NEG) Urine Ketones (Stick) Negative mg/dL (NEG) Urine Blood Negative (NEG) Urine Nitrite Negative (NEG) Urine Bilirubin Negative (NEG) Urine Urobilinogen Dipstick 0.2 mg/dL (0.2 mg/dL) Urine Leukocyte Esterase Negative (NEG) Urine RBC 0 /HPF (0-2) Urine WBC 0 /HPF (0-4) Urine Squamous Epithelial Cells Few /LPF Urine Bacteria 0 /HPF (0-FEW) Urine Mucus Slight /LPF Urine Opiates Screen Neg (NEG) Urine Methadone Screen Neg (NEG) Urine Barbiturates Neg (NEG) Urine Phencyclidine Screen Neg (NEG) Urine Amphetamine/Methamphetamine Neg (NEG) Urine Benzodiazepines Screen Neg (NEG) Urine Cocaine Screen Neg (NEG) Urine Cannabinoids Screen Neg (NEG) Urine Ethyl Alcohol Neg (NEG) Test 08/30/21 14:58 Lactic Acid Level 1.3 mmol/L (0.4-2.0) Laboratory Tests Test 08/30/21 10:15 08/30/21 13:25 08/30/21 13:30 08/30/21 13:50 White Blood Count 13.0 x10^3/uL (4.0-11.0) Red Blood Count 5.01 x10^6/uL (4.30-5.70) Hemoglobin 15.9 g/dL (13.0-17.5) Hematocrit 48.0 % (39.0-53.0) Mean Corpuscular Volume 96 fL (79-100) Mean Corpuscular Hemoglobin 32 pg (25-35) Mean Corpuscular Hemoglobin Concent 33 g/dL (31-37) Red Cell Distribution Width 13.9 % (11.5-14.5) Platelet Count 350 x10^3/uL (140-400) Neutrophils (%) (Auto) 69 % (31-73) Lymphocytes (%) (Auto) 19 % (24-48) Monocytes (%) (Auto) 10 % (0-9) Eosinophils (%) (Auto) 2 % (0-3) Basophils (%) (Auto) 1 % (0-3) Neutrophils # (Auto) 8.9 x10^3/uL (1.8-7.7) Lymphocytes # (Auto) 2.4 x10^3/uL (1.0-4.8) Monocytes # (Auto) 1.3 x10^3/uL (0.0-1.1) Eosinophils # (Auto) 0.2 x10^3/uL (0.0-0.7) Basophils # (Auto) 0.1 x10^3/uL (0.0-0.2) Sodium Level 135 mmol/L (136-145) Potassium Level 3.9 mmol/L (3.5-5.1) Chloride Level 98 mmol/L (98-107) Carbon Dioxide Level 26 mmol/L (21-32) Anion Gap 11 (6-14) Blood Urea Nitrogen 19 mg/dL (8-26) Creatinine 0.9 mg/dL (0.7-1.3) Estimated GFR (Cockcroft-Gault) 86.1 BUN/Creatinine Ratio 21 (6-20) Glucose Level 93 mg/dL (70-99) Calcium Level 8.9 mg/dL (8.5-10.1) Magnesium Level 1.9 mg/dL (1.8-2.4) Total Bilirubin 0.5 mg/dL (0.2-1.0) Aspartate Amino Transf (AST/SGOT) 37 U/L (15-37) Alanine Aminotransferase (ALT/SGPT) 34 U/L (16-63) Alkaline Phosphatase 70 U/L (46-116) Troponin I High Sensitivity 11 ng/L (4-75) 16 ng/L (4-75) ES-Tei-I-Type Natriuretic Peptide 36 pg/mL (0-124) Total Protein 8.5 g/dL (6.4-8.2) Albumin 4.0 g/dL (3.4-5.0) Albumin/Globulin Ratio 0.9 (1.0-1.7) Lipase 147 U/L (73-393) Thyroid Stimulating Hormone (TSH) 2.740 uIU/mL (0.358-3.74) Influenza Type A Antigen Negative (NEGATIVE) Influenza Type B Antigen Negative (NEGATIVE) SARS-CoV-2 Antigen (Rapid) Negative (NEGATIVE) Urine Collection Type Unknown Urine Color Yellow Urine Clarity Clear Urine pH 5.0 (<5.0-8.0) Urine Specific [place] >=1.030 (1.000-1.030) Urine Protein Negative mg/dL (NEG-TRACE) Urine Glucose (UA) Negative mg/dL (NEG) Urine Ketones (Stick) Negative mg/dL (NEG) Urine Blood Negative (NEG) Urine Nitrite Negative (NEG) Urine Bilirubin Negative (NEG) Urine Urobilinogen Dipstick 0.2 mg/dL (0.2 mg/dL) Urine Leukocyte Esterase Negative (NEG) Urine RBC 0 /HPF (0-2) Urine WBC 0 /HPF (0-4) Urine Squamous Epithelial Cells Few /LPF Urine Bacteria 0 /HPF (0-FEW) Urine Mucus Slight /LPF Urine Opiates Screen Neg (NEG) Urine Methadone Screen Neg (NEG) Urine Barbiturates Neg (NEG) Urine Phencyclidine Screen Neg (NEG) Urine Amphetamine/Methamphetamine Neg (NEG) Urine Benzodiazepines Screen Neg (NEG) Urine Cocaine Screen Neg (NEG) Urine Cannabinoids Screen Neg (NEG) Urine Ethyl Alcohol Neg (NEG) Test 08/30/21 14:58 Lactic Acid Level 1.3 mmol/L (0.4-2.0) Assessment/Plan Assessment/Plan Unstable angina, shortness of breath secondary to interstitial lung disease? Possible pneumonia? History of hypertension -Presenting with 1 day history of chest pain 1 day history of shortness of breath -Labs pretty unremarkable overall although mildly elevated white count -Continue to trend troponins. Cardiology consulted in emergency room -CT scan showed evidence of interstitial lung disease. Patient never smoker but maybe some exposure possibility with occupational history -Pulmonary consultation -DVT prophylaxis -Cardiac diet -Home meds resumed as indicated 19 minutes advance care planning Justifications for Admission Other Justification KIRAN MACIEL MD Aug 30, 2021 17:53
[2021-08-30 19:50] VITALS: BP 139/88
--- NOTE | 2021-08-30 19:55 | EKG ---
[facility] [address] [place] [address] Test Date: 2021-08-30 Test Time: 10:49:19 Pat Name: KIRAN DIAZ Department: Room: [facility] Gender: M Loss Control Technician: : 1960 Requested By: ESTHER VARNER Order Number: [id number] Reading MD: Dilip Bunch MD Measurements Intervals [place] Rate: 97 P: 32 DE: 152 QRS: 21 QRSD: 80 T: 22 QT: 330 QTc: 423 Interpretive Statements SINUS RHYTHM Electronically Signed On 09-06-2021 16:21:34 MENDER HAND by Dilip Bunch MD
--- NOTE | 2021-08-30 20:01 | EKG ---
[facility] [address] [place] [address] Test Date: 2021-08-30 Test Time: 10:13:53 Pat Name: KIRAN DIAZ Department: Room: [facility] Gender: M Receptionist: : 1960 Requested By: ESTHER VARNER Order Number: [id number] Reading MD: Dilip Bunch MD Measurements Intervals [employer] Rate: 105 P: 75 TX: 142 QRS: 7 QRSD: 80 T: 22 QT: 306 QTc: 408 Interpretive Statements SINUS TACHYCARDIA Electronically Signed On 09-06-2021 16:21:39 ENDOSCOPIC TECHNICIAN by Dilip Bunch MD
[2021-08-30] MEDS: SENNOSIDES/DOCUSATE 8.6/50MG TABLET. PO SCH (21:13)
[2021-08-30] MEDS: SIMVASTATIN 20 MG TABLET PO SCH (21:13)
[2021-08-30 23:25] VITALS: BP 140/75
[2021-08-30] MEDS: ACETAMINOPHEN 325 MG TABLET. PO PRN (23:48)
[2021-08-31 02:50] VITALS: BP 141/67
[2021-08-31] MEDS: HEPARIN for SUB-Q USE 5,000 UNIT/ML VIAL. SQ SCH ×3 (06:10→21:19)
[2021-08-31 07:55] VITALS: BP 140/62
[2021-08-31] MEDS: SENNOSIDES/DOCUSATE 8.6/50MG TABLET. PO SCH ×3 (09:00→21:18)
[2021-08-31] MEDS: TAMSULOSIN 0.4 MG CAP.ER.24H. PO SCH ×2 (09:00→09:45)
--- NOTE | 2021-08-31 09:20 | PDOC2 ---
CRISTIAN,KRISTIDARÍO DOLAN 08/31/21 0920: CARDIAC CONSULT DATE OF CONSULT Date of Consult DATE: 08/31/21 TIME: 09:19 REASON FOR CONSULT Reason for Consult: Chest pain REFERRING PHYSICIAN Referring Physician: Shantel Martinez APRN SOURCE Source: Chart review, Patient HISTORY OF PRESENT ILLNESS HISTORY OF PRESENT ILLNESS This is a 61 yo male who presented secondary to chest pain. Patient reports intermittent pain in his left chest for the last day and a half. Describes as "electrical" pain. Has been intermittent. No specific precipitating or exacerbating symptoms. Pain is very brief and resolved without intervention. No associated dizziness, diaphoresis, shortness of breath, or nausea/vomiting. No recent fevers or illness. Denies any recent COSME or chest pain with exertion. Has pain in his left shoulder today, although he thinks is is related to the position he has been laying in the hospital bed. PAST MEDICAL HISTORY Cardiovascular: HTN, Hyperlipidemia, Other (venous insufficiency ) CENTRAL NERVOUS SYSTEM: Periperal neuropathy Musculoskeletal: Osteoarthritis, Other (DJD) PAST SURGICAL HISTORY Past Surgical History: Total hip replacement (left ), Other (cervical funsion, multiple lower back surgeries) FAMILY HISTORY Family History: Heart Disease, Hypertension SOCIAL HISTORY Smoke: No ALCOHOL: none Drugs: None Lives: Alone CURRENT MEDICATIONS CURRENT MEDICATIONS Current Medications Medications (Trade) Dose Ordered Sig/Baldemar Route PRN Reason Start Time Stop Time Status Last Admin Dose Admin Aspirin (Elio Aspirin) 325 mg 1X ONCE PO 08/30/21 10:30 08/30/21 10:31 DC 08/30/21 10:50 Sodium Chloride 1,000 ml @ 1,000 mls/hr Q1H IV 08/30/21 10:30 08/30/21 11:29 DC 08/30/21 10:49 Nitroglycerin (Nitrostat) 0.4 mg PRN Q5MIN PRN SL CHEST PAIN 08/30/21 10:30 08/30/21 10:50 Iohexol (Omnipaque 350 Mg/ml) 100 ml 1X ONCE IV 08/30/21 11:00 08/30/21 11:03 DC 08/30/21 11:19 Azithromycin 500 mg/Sodium Chloride 250 ml @ 250 mls/hr 1X ONCE IV 08/30/21 13:30 08/30/21 14:29 DC 08/30/21 13:30 Ceftriaxone Sodium (Rocephin) 1 gm 1X ONCE IVP 08/30/21 13:30 08/30/21 13:31 DC 08/30/21 14:18 Tamsulosin HCl (Flomax) 0.4 mg DAILY PO 08/30/21 15:00 08/30/21 15:37 Acetaminophen (Tylenol) 650 mg PRN Q6HRS PRN PO Headaches, Temp > 101.5F 08/30/21 14:00 08/30/21 23:48 Senna/Docusate Sodium (Senna Plus) 1 tab BID PO 08/30/21 21:00 08/30/21 21:13 Heparin Sodium (Porcine) (Heparin Sodium) 5,000 unit Q8HRS SQ 08/30/21 14:00 08/31/21 06:10 Simvastatin (Zocor) 20 mg HS PO 08/30/21 21:00 08/30/21 21:13 Tizanidine HCl (Zanaflex) 4 mg PRN BID PRN PO MUSCLE SPASMS 08/30/21 17:00 08/30/21 23:48 ALLERGIES ALLERGIES: Coded Allergies: No Known Drug Allergies (Unverified , 08/30/21) ROS Review of System 14 point ROS conducted with pertinent positives noted above in HPI PHYSICAL EXAM General: Alert, Oriented X3, Cooperative, No acute distress HEENT: Atraumatic, Mucous membr. moist/pink Lungs: Clear to auscultation Heart: Regular rate Abdomen: Soft, Other (obese) Extremities: No edema, Normal pulses, Other (chronic venous stasis changes to bilateral LE) Skin: No significant lesion Neuro: Normal speech, Sensation intact Psych/Mental Status: Mental status NL, Mood NL MUSCULOSKELETAL: Osteoarthritic changes both hands VITALS/I&O VITALS/I&O: Vital Signs Date Time Temp Pulse Resp B/P (MAP) Pulse Ox O2 Delivery O2 Flow Rate FiO2 08/31/21 07:55 97.9 80 20 140/62 (88) 95 Nasal Cannula 2.0 97.9 I & O0 08/30/21 08/30/21 08/31/21 15:00 23:00 07:00 Intake Total 1250 ml 180 ml 100 ml Output Total 475 ml Balance 1250 ml 180 ml -375 ml LABS Lab: Laboratory Tests Test 08/30/21 10:15 08/30/21 13:25 08/30/21 13:30 08/30/21 13:50 White Blood Count 13.0 x10^3/uL (4.0-11.0) H Red Blood Count 5.01 x10^6/uL (4.30-5.70) Hemoglobin 15.9 g/dL (13.0-17.5) Hematocrit 48.0 % (39.0-53.0) Mean Corpuscular Volume 96 fL (79-100) Mean Corpuscular Hemoglobin 32 pg (25-35) Mean Corpuscular Hemoglobin Concent 33 g/dL (31-37) Red Cell Distribution Width 13.9 % (11.5-14.5) Platelet Count 350 x10^3/uL (140-400) Neutrophils (%) (Auto) 69 % (31-73) Lymphocytes (%) (Auto) 19 % (24-48) L Monocytes (%) (Auto) 10 % (0-9) H Eosinophils (%) (Auto) 2 % (0-3) Basophils (%) (Auto) 1 % (0-3) Neutrophils # (Auto) 8.9 x10^3/uL (1.8-7.7) H Lymphocytes # (Auto) 2.4 x10^3/uL (1.0-4.8) Monocytes # (Auto) 1.3 x10^3/uL (0.0-1.1) H Eosinophils # (Auto) 0.2 x10^3/uL (0.0-0.7) Basophils # (Auto) 0.1 x10^3/uL (0.0-0.2) Sodium Level 135 mmol/L (136-145) L Potassium Level 3.9 mmol/L (3.5-5.1) Chloride Level 98 mmol/L (98-107) Carbon Dioxide Level 26 mmol/L (21-32) Anion Gap 11 (6-14) Blood Urea Nitrogen 19 mg/dL (8-26) Creatinine 0.9 mg/dL (0.7-1.3) Estimated GFR (Cockcroft-Gault) 86.1 BUN/Creatinine Ratio 21 (6-20) H Glucose Level 93 mg/dL (70-99) Calcium Level 8.9 mg/dL (8.5-10.1) Magnesium Level 1.9 mg/dL (1.8-2.4) Total Bilirubin 0.5 mg/dL (0.2-1.0) Aspartate Amino Transferase (AST) 37 U/L (15-37) Alanine Aminotransferase (ALT) 34 U/L (16-63) Alkaline Phosphatase 70 U/L (46-116) Troponin I High Sensitivity 11 ng/L (4-75) 16 ng/L (4-75) [place]-Fya-L-Type Natriuretic Peptide 36 pg/mL (0-124) Total Protein 8.5 g/dL (6.4-8.2) H Albumin 4.0 g/dL (3.4-5.0) Albumin/Globulin Ratio 0.9 (1.0-1.7) L Lipase 147 U/L (73-393) Thyroid Stimulating Hormone (TSH) 2.740 uIU/mL (0.358-3.74) Influenza Type A Antigen Negative (NEGATIVE) Influenza Type B Antigen Negative (NEGATIVE) SARS-CoV-2 Antigen (Rapid) Negative (NEGATIVE) Urine Collection Type Unknown Urine Color Yellow Urine Clarity Clear Urine pH 5.0 (<5.0-8.0) Urine Specific [place] >=1.030 (1.000-1.030) Urine Protein Negative mg/dL (NEG-TRACE) Urine Glucose (UA) Negative mg/dL (NEG) Urine Ketones (Stick) Negative mg/dL (NEG) Urine Blood Negative (NEG) Urine Nitrite Negative (NEG) Urine Bilirubin Negative (NEG) Urine Urobilinogen Dipstick 0.2 mg/dL (0.2 mg/dL) Urine Leukocyte Esterase Negative (NEG) Urine RBC 0 /HPF (0-2) Urine WBC 0 /HPF (0-4) Urine Squamous Epithelial Cells Few /LPF Urine Bacteria 0 /HPF (0-FEW) Urine Mucus Slight /LPF Urine Opiates Screen Neg (NEG) Urine Methadone Screen Neg (NEG) Urine Barbiturates Neg (NEG) Urine Phencyclidine Screen Neg (NEG) Urine Amphetamine/Methamphetamine Neg (NEG) Urine Benzodiazepines Screen Neg (NEG) Urine Cocaine Screen Neg (NEG) Urine Cannabinoids Screen Neg (NEG) Urine Ethyl Alcohol Neg (NEG) Test 08/30/21 14:58 08/30/21 16:20 Lactic Acid Level 1.3 mmol/L (0.4-2.0) Troponin I High Sensitivity 19 ng/L (4-75) Laboratory Tests 08/30/21 10:15 Laboratory Tests 08/30/21 10:15 ASSESSMENT/PLAN ASSESSMENT/PLAN 1. Chest pain, mixed features. AMI ruled out 2. CAD; CTA chest noted with coronary artery calcifications 2. Hypertensive urgency; now controlled 3. Hyperlipidemia; statin 4. Peripheral neuropathy 5. Abnormal CT chest; noted with ILD, and occluded SVC- possibly chronic Recommendations Echo to assess LV systolic function Lipids ASA therapy Home antiHTN therapy resumed. Will need further ischemic evaluation; possibly on an outpatient basis Further pending above OCTAVIANO PLATA MD 09/01/21 0728: CARDIAC CONSULT ASSESSMENT/PLAN ASSESSMENT/PLAN Late entry for 08/31/2021 Patient seen and examined. Agree with above nurse practitioner note. Echocardiogram is unremarkable. We will plan for outpatient ischemic testing. KRISTI FOSTER APRN Aug 31, 2021 09:20 OCTAVIANO PLATA MD Sep 01, 2021 07:28
[2021-08-31] MEDS: LISINOPRIL 20 MG TABLET PO SCH (09:44)
[2021-08-31] MEDS: ASPIRIN CHEWABLE 81 MG TABLET. PO SCH (09:45)
[2021-08-31] MEDS: TRIAMTERENE/HCTZ 37.5/25MG TABLET. PO SCH (09:45)
--- NOTE | 2021-08-31 10:43 | PDOC ---
PULMONARY PROGRESS NOTES DATE: 08/31/21 TIME: 10:43 Vitals Vital Signs Date Time Temp Pulse Resp B/P (MAP) Pulse Ox O2 Delivery O2 Flow Rate FiO2 08/31/21 09:45 80 140/62 08/31/21 07:55 97.9 20 95 Nasal Cannula 2.0 97.9 Labs Laboratory Tests Test 08/30/21 10:15 08/30/21 13:25 08/30/21 13:30 08/30/21 13:50 White Blood Count 13.0 x10^3/uL (4.0-11.0) Red Blood Count 5.01 x10^6/uL (4.30-5.70) Hemoglobin 15.9 g/dL (13.0-17.5) Hematocrit 48.0 % (39.0-53.0) Mean Corpuscular Volume 96 fL (79-100) Mean Corpuscular Hemoglobin 32 pg (25-35) Mean Corpuscular Hemoglobin Concent 33 g/dL (31-37) Red Cell Distribution Width 13.9 % (11.5-14.5) Platelet Count 350 x10^3/uL (140-400) Neutrophils (%) (Auto) 69 % (31-73) Lymphocytes (%) (Auto) 19 % (24-48) Monocytes (%) (Auto) 10 % (0-9) Eosinophils (%) (Auto) 2 % (0-3) Basophils (%) (Auto) 1 % (0-3) Neutrophils # (Auto) 8.9 x10^3/uL (1.8-7.7) Lymphocytes # (Auto) 2.4 x10^3/uL (1.0-4.8) Monocytes # (Auto) 1.3 x10^3/uL (0.0-1.1) Eosinophils # (Auto) 0.2 x10^3/uL (0.0-0.7) Basophils # (Auto) 0.1 x10^3/uL (0.0-0.2) Sodium Level 135 mmol/L (136-145) Potassium Level 3.9 mmol/L (3.5-5.1) Chloride Level 98 mmol/L (98-107) Carbon Dioxide Level 26 mmol/L (21-32) Anion Gap 11 (6-14) Blood Urea Nitrogen 19 mg/dL (8-26) Creatinine 0.9 mg/dL (0.7-1.3) Estimated GFR (Cockcroft-Gault) 86.1 BUN/Creatinine Ratio 21 (6-20) Glucose Level 93 mg/dL (70-99) Calcium Level 8.9 mg/dL (8.5-10.1) Magnesium Level 1.9 mg/dL (1.8-2.4) Total Bilirubin 0.5 mg/dL (0.2-1.0) Aspartate Amino Transf (AST/SGOT) 37 U/L (15-37) Alanine Aminotransferase (ALT/SGPT) 34 U/L (16-63) Alkaline Phosphatase 70 U/L (46-116) Troponin I High Sensitivity 11 ng/L (4-75) 16 ng/L (4-75) NR-Mqi-U-Type Natriuretic Peptide 36 pg/mL (0-124) Total Protein 8.5 g/dL (6.4-8.2) Albumin 4.0 g/dL (3.4-5.0) Albumin/Globulin Ratio 0.9 (1.0-1.7) Lipase 147 U/L (73-393) Thyroid Stimulating Hormone (TSH) 2.740 uIU/mL (0.358-3.74) Influenza Type A Antigen Negative (NEGATIVE) Influenza Type B Antigen Negative (NEGATIVE) SARS-CoV-2 Antigen (Rapid) Negative (NEGATIVE) Urine Collection Type Unknown Urine Color Yellow Urine Clarity Clear Urine pH 5.0 (<5.0-8.0) Urine Specific [place] >=1.030 (1.000-1.030) Urine Protein Negative mg/dL (NEG-TRACE) Urine Glucose (UA) Negative mg/dL (NEG) Urine Ketones (Stick) Negative mg/dL (NEG) Urine Blood Negative (NEG) Urine Nitrite Negative (NEG) Urine Bilirubin Negative (NEG) Urine Urobilinogen Dipstick 0.2 mg/dL (0.2 mg/dL) Urine Leukocyte Esterase Negative (NEG) Urine RBC 0 /HPF (0-2) Urine WBC 0 /HPF (0-4) Urine Squamous Epithelial Cells Few /LPF Urine Bacteria 0 /HPF (0-FEW) Urine Mucus Slight /LPF Urine Opiates Screen Neg (NEG) Urine Methadone Screen Neg (NEG) Urine Barbiturates Neg (NEG) Urine Phencyclidine Screen Neg (NEG) Urine Amphetamine/Methamphetamine Neg (NEG) Urine Benzodiazepines Screen Neg (NEG) Urine Cocaine Screen Neg (NEG) Urine Cannabinoids Screen Neg (NEG) Urine Ethyl Alcohol Neg (NEG) Test 08/30/21 14:58 08/30/21 16:20 Lactic Acid Level 1.3 mmol/L (0.4-2.0) Troponin I High Sensitivity 19 ng/L (4-75) Laboratory Tests Test 08/30/21 13:25 08/30/21 13:30 08/30/21 13:50 08/30/21 14:58 Influenza Type A Antigen Negative (NEGATIVE) Influenza Type B Antigen Negative (NEGATIVE) SARS-CoV-2 Antigen (Rapid) Negative (NEGATIVE) Troponin I High Sensitivity 16 ng/L (4-75) Urine Collection Type Unknown Urine Color Yellow Urine Clarity Clear Urine pH 5.0 (<5.0-8.0) Urine Specific [place] >=1.030 (1.000-1.030) Urine Protein Negative mg/dL (NEG-TRACE) Urine Glucose (UA) Negative mg/dL (NEG) Urine Ketones (Stick) Negative mg/dL (NEG) Urine Blood Negative (NEG) Urine Nitrite Negative (NEG) Urine Bilirubin Negative (NEG) Urine Urobilinogen Dipstick 0.2 mg/dL (0.2 mg/dL) Urine Leukocyte Esterase Negative (NEG) Urine RBC 0 /HPF (0-2) Urine WBC 0 /HPF (0-4) Urine Squamous Epithelial Cells Few /LPF Urine Bacteria 0 /HPF (0-FEW) Urine Mucus Slight /LPF Urine Opiates Screen Neg (NEG) Urine Methadone Screen Neg (NEG) Urine Barbiturates Neg (NEG) Urine Phencyclidine Screen Neg (NEG) Urine Amphetamine/Methamphetamine Neg (NEG) Urine Benzodiazepines Screen Neg (NEG) Urine Cocaine Screen Neg (NEG) Urine Cannabinoids Screen Neg (NEG) Urine Ethyl Alcohol Neg (NEG) Lactic Acid Level 1.3 mmol/L (0.4-2.0) Test 08/30/21 16:20 Troponin I High Sensitivity 19 ng/L (4-75) Medications Active Scripts Medications Dose Route/Sig Max Daily Dose Days Date Category Tylenol (Acetaminophen) 325 Mg Tablet 500 Mg PO PRN Q6HRS PRN 08/30/21 Reported Aspirin 81 Mg Tab.chew 81 Mg PO DAILY 08/30/21 Reported Tizanidine Hcl 4 Mg Capsule 4 Mg PO BID PRN 08/30/21 Reported Amlodipine Besylate 5 Mg Tablet 5 Mg PO DAILY 08/30/21 Reported Simvastatin 20 Mg Tablet 20 Mg PO HS 08/30/21 Reported Triamterene-Hctz 37.5-25 Mg Tb (Triamterene/Hydrochlorothiazid) 1 Each Tablet 1 Tab PO DAILY 08/30/21 Reported Lisinopril 20 Mg Tablet 20 Mg PO DAILY 08/30/21 Reported Impression . Full consult dictated Abnormal CT chest report dated interstitial lung disease, pulmonary fibrosis Discharge home today, follow-up with me in October RUBENS IRAHETA MD Aug 31, 2021 10:43
[2021-08-31 11:26] VITALS: BP 136/60
--- NOTE | 2021-08-31 11:42 | NUR ---
SS following for discharge planning. SS reviewed pt chart and discussed with pt RN. Pt is from home and is currently requiring oxygen at two liters nasal canula. COVID19 negative. Pt has no home oxygen. Pulmonology and Cardiology consulted. SS will continue to follow for discharge planning.
--- NOTE | 2021-08-31 14:23 | PDOC ---
[employer] PROGRESS NOTE Date of Service DOS: DATE: 08/31/21 TIME: 14:22 Chief Complaint Chief Complaint Unstable angina, shortness of breath secondary to interstitial lung disease? Possible pneumonia? History of hypertension -Presenting with 1 day history of chest pain 1 day history of shortness of breath -Labs pretty unremarkable overall although mildly elevated white count -Continue to trend troponins. Cardiology consulted in emergency room -CT scan showed evidence of interstitial lung disease. Patient never smoker but maybe some exposure possibility with occupational history -Pulmonary consultation -DVT prophylaxis -Cardiac diet -Home meds resumed as indicated History of Present Illness History of Present Illness 61-year-old white male presented to the emergency room today due to 1 day history of chest pain and 1 month history of shortness of breath. Patient reports that yesterday started having left-sided chest pain with radiation into his left axilla. No rhyme or reason to when it starts according to him. Not particularly worse with exertion and he says he definitely has the pain at rest as well. He does have a history of hypertension. Denies any specific cardiac history, no irregular heartbeat no home blood thinners. CT scan in the emergency room showed interstitial lung disease. Patient denies any history of smoking. 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 Said it was 3 months at a time for a total of 9 months. Reports it was very nahomy he said they frequently would take their masks off when they clogged up after a few minutes of wearing. 08/31/2021 No acute events overnight. Patient seen examined bedside. Chest pain-free at this time. Pending cardiopulmonary work-up. Pending TTE. Patient's chart, labs, images were reviewed and discussed with RN Vitals/I&O Vitals/I&O: Vital Signs Date Time Temp Pulse Resp B/P (MAP) Pulse Ox O2 Delivery O2 Flow Rate FiO2 08/31/21 11:26 98.1 86 18 136/60 (85) 95 Room Air 98.1 08/31/21 07:55 2.0 I & O 08/30/21 08/30/21 08/31/21 15:00 23:00 07:00 Intake Total 1250 ml 180 ml 100 ml Output Total 475 ml Balance 1250 ml 180 ml -375 ml Physical Exam General: Alert, Oriented X3, Cooperative, No acute distress Heart: Regular rate Abdomen: Soft, Other (obese) Extremities: No edema, Normal pulses, Other (chronic venous stasis changes to bilateral LE) Skin: No significant lesion Labs Labs: Laboratory Tests Test 08/30/21 14:58 08/30/21 16:20 Lactic Acid Level 1.3 mmol/L (0.4-2.0) Troponin I High Sensitivity 19 ng/L (4-75) Assessment and Plan Assessmemt and Plan Problems Medical Problems: (1) Chest pain Status: Acute (2) Pleural effusion associated with pulmonary infection Status: Acute Comment Review of Relevant I have reviewed the following items wendy (where applicable) has been applied. Medications: Current Medications Medications (Trade) Dose Ordered Sig/Baldemar Route PRN Reason Start Time Stop Time Status Last Admin Dose Admin Tamsulosin HCl (Flomax) 0.4 mg DAILY PO 08/30/21 15:00 08/30/21 15:37 Senna/Docusate Sodium (Senna Plus) 1 tab BID PO 08/30/21 21:00 08/30/21 21:13 Amlodipine Besylate (Norvasc) 5 mg DAILY PO 08/31/21 09:00 08/31/21 09:45 Aspirin (Aspirin Chewable) 81 mg DAILY PO 08/31/21 09:00 08/31/21 09:45 Lisinopril (Prinivil) 20 mg DAILY PO 08/31/21 09:00 08/31/21 09:44 Simvastatin (Zocor) 20 mg HS PO 08/30/21 21:00 08/30/21 21:13 Triamterene/HCTZ (Maxzide 37.5/ 25mg) 1 tab DAILY PO 08/31/21 09:00 08/31/21 09:45 Tizanidine HCl (Zanaflex) 4 mg PRN BID PRN PO MUSCLE SPASMS 08/30/21 17:00 08/30/21 23:48 Justifications for Admission Other Justification CORNELL BERNARDO MD Aug 31, 2021 14:23
[2021-08-31 14:36] VITALS: BP 106/64
[2021-08-31] MEDS ORDERED: TAMS0.4C97 PO (16:43)
--- NOTE | 2021-08-31 18:12 | CARD ---
MR#: [id number] Date of Study: 08/31/2021 Ordering Physician: KRISTI FOSTER, Referring Physician: KRISTI FOSTER, Evonne: Jhonny Pedraza [facility] APPROVED REPORT EXAM: Two-dimensional and M-mode echocardiogram with Doppler and color Doppler. Other Information Quality : FairHR: 90bpm Rhythm : NSRTechnically limited study due to body habitus. INDICATION Dyspnea Chest Pain RISK FACTORS Hypertension Possible pulmonary fibrosis 2D DIMENSIONS Left Atrium(2D)4.3 (1.6-4.0cm)IVSd1.3 (0.7-1.1cm) Aortic Root(2D)3.8 (2.0-3.7cm)LVDd4.2 (3.9-5.9cm) LVOT Diameter2.1 (1.8-2.4cm)PWd1.4 (0.7-1.1cm) LVDs2.7 (2.5-4.0cm)FS (%) 35.7 % SV52.0 mlLVEF(%)65.6 (>50%) Aortic Valve AoV Peak Bill.182.7cm/sAoV VTI28.4cm AO Peak GR.13.4mmHgLVOT Peak Bill.159.6cm/s AO Mean GR.6mmHgAVA (VMAX)3.14cm2 Mitral Valve MV E Wisrhred94.0cm/sMV E Peak Gr.7mmHg MV DECEL [id number] A Rkisiylg175.5cm/s MV E Mean Gr.2mmHgE/A Ratio0.7 Pulmonary Valve PV Peak Iigwklgj625.6cm/s Tricuspid Valve TR P. Xokckgmc577yh/sTR Peak Gr.24mmHg Pulmonary Vein S1 Nvrxijtp22.8cm/sD2 Jzfiaoaz05.3cm/s LEFT VENTRICLE The left ventricle is normal size. There is mild concentric left ventricular hypertrophy. The left ve ntricular systolic function is normal. The ejection fraction is estimated at 60-65%. There is normal LV segmental wall motion. Transmitral Doppler flow pattern is Grade I-abnormal relaxation pattern. No left ventricle thrombus noted on this study. There is no ventricular septal defect visualized. There is no left ventricular aneurysm. There is no mass noted in the left ventricle. RIGHT VENTRICLE The right ventricle is normal size. There is normal right ventricular wall thickness. The right ventr icular systolic function is normal. ATRIA The left atrium is mildly dilated. The right atrium size is normal. The interatrial septum is intact with no evidence for an atrial septal defect or patent foramen ovale as noted on 2-D or Doppler imagi ng. AORTIC VALVE The aortic valve is not well seen. Doppler and Color Flow revealed no significant aortic regurgitatio n. There is no significant aortic valvular stenosis. There is no aortic valvular vegetation. MITRAL VALVE The mitral valve is normal in structure and function. There is no evidence of mitral valve prolapse. There is no mitral valve stenosis. Doppler and Color Flow revealed no mitral valve regurgitation note d. TRICUSPID VALVE The tricuspid valve is normal in structure and function. Doppler and Color Flow revealed trace tricus pid regurgitation. The PA pressure was estimated at 33 mmHg. There is no tricuspid valve prolapse or vegetation. There is no tricuspid valve stenosis. PULMONIC VALVE The pulmonic valve is not well seen. Doppler and Color Flow revealed no pulmonic valvular regurgitati on. There is no pulmonic valvular stenosis. GREAT VESSELS The aortic root is normal in size. The ascending aorta is normal in size. The pulmonary artery is not well seen. The IVC is not well seen. PERICARDIAL EFFUSION There is no pleural effusion noted on this study. There is no evidence of significant pericardial eff usion. Critical Notification Critical Value: No <Conclusion> The left ventricular systolic function is normal. The ejection fraction is estimated at 60-65%. There is normal LV segmental wall motion. Transmitral Doppler flow pattern is Grade I-abnormal relaxation pattern. Trace tricuspid regurgitation. The PA pressure was estimated at 33 mmHg. There is no evidence of significant pericardial effusion. Signed by : Matt Mendoza, Electronically Approved : 08/31/2021 18:12:20
--- NOTE | 2021-08-31 19:35 | CONS ---
DATE OF CONSULTATION: 08/31/2021 ATTENDING PHYSICIAN: Dr. Atul Garcia. REASON FOR CONSULTATION: The patient is seen in pulmonary consultation at the request of Dr. Garcia for abnormal CT chest revealing interstitial lung disease, peripheral honeycombing, possible fibrosis. HISTORY OF PRESENT ILLNESS: The patient is a 61-year-old male with no history of tobacco use or asthma, presented to the Emergency Room with 1-day history of chest pain and shortness of breath. He had intermittent left sided pain shooting into the arm. He states that he might have felt palpitations. The patient was evaluated in the Emergency Department, underwent CT angiogram. I personally reviewed it. There is no evidence of pulmonary embolism. There was some diffuse interstitial lung changes along with some honeycombing compatible with pulmonary fibrosis. There was also lower lung traction bronchiectasis. The patient has never smoked. He worked in a [employer] for quite some time, exposed to grain dust. PAST MEDICAL HISTORY: Hypertension, previous hip replacement, never smoked. PAST SURGICAL HISTORY: Hip replacement. ALLERGIES: No known drug allergies. REVIEW OF SYSTEMS: As indicated above, otherwise other systems were reviewed and negative. The patient does not have any birds at home. He has not lived on a farm. SOCIAL HISTORY: Never smoked. Once again, he worked as a teenager in a grain elevator. CURRENT MEDICATIONS: Current medication list was reviewed. He is currently receiving aspirin, calcium supplement, heparin, lisinopril, nitroglycerin, simvastatin, Flomax, and p.r.n. medications. PHYSICAL EXAMINATION: GENERAL: The patient appeared to be a stated age. VITAL SIGNS: Stable. O2 saturation currently on 2 liters, was greater than 92%. HEENT: Eyes: The sclerae were nonicteric. NECK: Jugular venous distention was not elevated. No lymphadenopathy. CHEST: Full expansion. LUNGS: Velcro type of rales in the bases, otherwise adequate air flow, no wheezes. CARDIOVASCULAR: Regular rate and rhythm with S1, S2, no S3. ABDOMEN: Soft, nontender. EXTREMITIES: No clubbing, cyanosis or edema. LABORATORY DATA: Serology for influenza and SARS-CoV-2 rapid test was negative. Urine drug screen was negative. UA was noted. Electrolytes were noted. Troponin was not elevated. White count was normal. IMPRESSION: 1. Atypical chest pain, suspect gastroesophageal reflux disease. 2. Abnormal CT chest revealing interstitial lung disease and peripheral honeycombing compatible with pulmonary fibrosis, suspect secondary to his work exposure. The patient was worked in a grain elevator. 3. Hypertension. 4. Obesity. 5. Dyspnea secondary to above. 6. Some traction bronchiectasis seen on CT chest. PLAN: 1. A 6-minute walk. 2. Discharge home today. Okay by me. 3. Follow up with me in the office with outpatient PFTs. HERRERA DR: Lluvia TID: [id number]
[2021-08-31 19:45] VITALS: BP 113/61
[2021-08-31] MEDS: SIMVASTATIN 20 MG TABLET PO SCH (21:18)
[2021-08-31] MEDS: ACETAMINOPHEN 325 MG TABLET. PO PRN (21:29)
[2021-08-31 23:10] VITALS: BP 107/69
[2021-09-01 03:40] VITALS: BP 126/59
[2021-09-01 04:48] LABS: CHOLESTEROL/HDL RATIO 4.1
[2021-09-01] MEDS: HEPARIN for SUB-Q USE 5,000 UNIT/ML VIAL. SQ SCH ×2 (05:40→14:00)
[2021-09-01 07:00] VITALS: BP 145/69
--- NOTE | 2021-09-01 08:56 | PDOC ---
PULMONARY PROGRESS NOTES DATE: 09/01/21 TIME: 08:52 Subjective Patient is resting comfortably on 2 L nasal cannula, denies shortness of breath chest pain, or cough Afebrile, no overnight concerns Vitals Vital Signs Date Time Temp Pulse Resp B/P (MAP) Pulse Ox O2 Delivery O2 Flow Rate FiO2 09/01/21 07:00 98.1 83 20 145/69 (94) 98 Nasal Cannula 2.0 98.1 ROS: No Nausea, No Chest Pain, No Abdominal Pain, No Increase Cough General: Oriented X4 Lungs: Crackles Cardiovascular: S1, S2 Abdomen: Soft Neuro Exam: Alert Extremities: No Edema Skin: Warm, Dry Labs Laboratory Tests Test 08/30/21 10:15 08/30/21 13:25 08/30/21 13:30 08/30/21 13:50 White Blood Count 13.0 x10^3/uL (4.0-11.0) Red Blood Count 5.01 x10^6/uL (4.30-5.70) Hemoglobin 15.9 g/dL (13.0-17.5) Hematocrit 48.0 % (39.0-53.0) Mean Corpuscular Volume 96 fL (79-100) Mean Corpuscular Hemoglobin 32 pg (25-35) Mean Corpuscular Hemoglobin Concent 33 g/dL (31-37) Red Cell Distribution Width 13.9 % (11.5-14.5) Platelet Count 350 x10^3/uL (140-400) Neutrophils (%) (Auto) 69 % (31-73) Lymphocytes (%) (Auto) 19 % (24-48) Monocytes (%) (Auto) 10 % (0-9) Eosinophils (%) (Auto) 2 % (0-3) Basophils (%) (Auto) 1 % (0-3) Neutrophils # (Auto) 8.9 x10^3/uL (1.8-7.7) Lymphocytes # (Auto) 2.4 x10^3/uL (1.0-4.8) Monocytes # (Auto) 1.3 x10^3/uL (0.0-1.1) Eosinophils # (Auto) 0.2 x10^3/uL (0.0-0.7) Basophils # (Auto) 0.1 x10^3/uL (0.0-0.2) Sodium Level 135 mmol/L (136-145) Potassium Level 3.9 mmol/L (3.5-5.1) Chloride Level 98 mmol/L (98-107) Carbon Dioxide Level 26 mmol/L (21-32) Anion Gap 11 (6-14) Blood Urea Nitrogen 19 mg/dL (8-26) Creatinine 0.9 mg/dL (0.7-1.3) Estimated GFR (Cockcroft-Gault) 86.1 BUN/Creatinine Ratio 21 (6-20) Glucose Level 93 mg/dL (70-99) Calcium Level 8.9 mg/dL (8.5-10.1) Magnesium Level 1.9 mg/dL (1.8-2.4) Total Bilirubin 0.5 mg/dL (0.2-1.0) Aspartate Amino Transf (AST/SGOT) 37 U/L (15-37) Alanine Aminotransferase (ALT/SGPT) 34 U/L (16-63) Alkaline Phosphatase 70 U/L (46-116) Troponin I High Sensitivity 11 ng/L (4-75) 16 ng/L (4-75) FQ-Zdf-K-Type Natriuretic Peptide 36 pg/mL (0-124) Total Protein 8.5 g/dL (6.4-8.2) Albumin 4.0 g/dL (3.4-5.0) Albumin/Globulin Ratio 0.9 (1.0-1.7) Lipase 147 U/L (73-393) Thyroid Stimulating Hormone (TSH) 2.740 uIU/mL (0.358-3.74) Coronavirus (COVID-19)(PCR) Not detected (NOT DETECTD) Influenza Type A Antigen Negative (NEGATIVE) Influenza Type B Antigen Negative (NEGATIVE) SARS-CoV-2 Antigen (Rapid) Negative (NEGATIVE) Urine Collection Type Unknown Urine Color Yellow Urine Clarity Clear Urine pH 5.0 (<5.0-8.0) Urine Specific [place] >=1.030 (1.000-1.030) Urine Protein Negative mg/dL (NEG-TRACE) Urine Glucose (UA) Negative mg/dL (NEG) Urine Ketones (Stick) Negative mg/dL (NEG) Urine Blood Negative (NEG) Urine Nitrite Negative (NEG) Urine Bilirubin Negative (NEG) Urine Urobilinogen Dipstick 0.2 mg/dL (0.2 mg/dL) Urine Leukocyte Esterase Negative (NEG) Urine RBC 0 /HPF (0-2) Urine WBC 0 /HPF (0-4) Urine Squamous Epithelial Cells Few /LPF Urine Bacteria 0 /HPF (0-FEW) Urine Mucus Slight /LPF Urine Opiates Screen Neg (NEG) Urine Methadone Screen Neg (NEG) Urine Barbiturates Neg (NEG) Urine Phencyclidine Screen Neg (NEG) Urine Amphetamine/Methamphetamine Neg (NEG) Urine Benzodiazepines Screen Neg (NEG) Urine Cocaine Screen Neg (NEG) Urine Cannabinoids Screen Neg (NEG) Urine Ethyl Alcohol Neg (NEG) Test 08/30/21 14:58 08/30/21 16:20 09/01/21 03:20 Lactic Acid Level 1.3 mmol/L (0.4-2.0) Troponin I High Sensitivity 19 ng/L (4-75) Triglycerides Level 142 mg/dL (0-150) Cholesterol Level 147 mg/dL (0-200) LDL Cholesterol, Calculated 83 mg/dL (0-100) VLDL Cholesterol, Calculated 28 mg/dL (0-40) Non-HDL Cholesterol Calculated 111 mg/dL (0-129) HDL Cholesterol 36 mg/dL (40-60) Cholesterol/HDL Ratio 4.1 Laboratory Tests Test 09/01/21 03:20 Triglycerides Level 142 mg/dL (0-150) Cholesterol Level 147 mg/dL (0-200) LDL Cholesterol, Calculated 83 mg/dL (0-100) VLDL Cholesterol, Calculated 28 mg/dL (0-40) Non-HDL Cholesterol Calculated 111 mg/dL (0-129) HDL Cholesterol 36 mg/dL (40-60) Cholesterol/HDL Ratio 4.1 Medications Active Scripts Medications Dose Route/Sig Max Daily Dose Days Date Category Tylenol (Acetaminophen) 325 Mg Tablet 500 Mg PO PRN Q6HRS PRN 08/30/21 Reported Aspirin 81 Mg Tab.chew 81 Mg PO DAILY 08/30/21 Reported Tizanidine Hcl 4 Mg Capsule 4 Mg PO BID PRN 08/30/21 Reported Amlodipine Besylate 5 Mg Tablet 5 Mg PO DAILY 08/30/21 Reported Simvastatin 20 Mg Tablet 20 Mg PO HS 08/30/21 Reported Triamterene-Hctz 37.5-25 Mg Tb (Triamterene/Hydrochlorothiazid) 1 Each Tablet 1 Tab PO DAILY 08/30/21 Reported Lisinopril 20 Mg Tablet 20 Mg PO DAILY 08/30/[address] chest IMPRESSION: 1. No large central pulmonary thromboembolic disease. Segmental and subsegmental branches not well evaluated due to suboptimal contrast opacification. 2. Findings of interstitial lung disease. 3. 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 Impression . IMPRESSION: 1. Atypical chest pain, suspect gastroesophageal reflux disease. 2. Abnormal CT chest revealing interstitial lung disease and peripheral honeycombing compatible with pulmonary fibrosis, suspect secondary to his work exposure. The patient was worked in a grain elevator. 3. Hypertension. 4. Obesity. 5. Dyspnea secondary to above. 6. Some traction bronchiectasis seen on CT chest. Plan . Updated 09/01/2021 Continue supplemental oxygen keep oxygen saturations greater than 92% 6 min walk Prior to discharge Bronchodilators as needed Patient has a follow-up with me in the office in October with outpatient DVT prophylaxis: Subcutaneous heparin Okay to discharge home today from our standpoint once completion of 6min walk Discussed with RN PLAN: 1. A 6-minute walk. 2. Discharge home today. Okay by me. 3. Follow up with me in the office with outpatient PFTs. RUBENS IRAHETA MD Sep 01, 2021 08:56
[2021-09-01] MEDS: SENNOSIDES/DOCUSATE 8.6/50MG TABLET. PO SCH (09:00)
[2021-09-01] MEDS: TAMSULOSIN 0.4 MG CAP.ER.24H. PO SCH (09:00)
[2021-09-01] MEDS: LISINOPRIL 20 MG TABLET PO SCH (09:59)
[2021-09-01] MEDS: ASPIRIN CHEWABLE 81 MG TABLET. PO SCH (09:59)
[2021-09-01] MEDS: TRIAMTERENE/HCTZ 37.5/25MG TABLET. PO SCH (09:59)
--- NOTE | 2021-09-01 10:47 | PDOC ---
KRISTI FOSTER BOBBIN SORTER 09/01/21 1047: CARDIO Progress Notes Date and Time Date of Service 09/01/21 Time of Evaluation 1045 Subjective Subjective: No Chest Pain, No shortness of breath, No Palpitations Vitals Vitals Vital Signs Date Time Temp Pulse Resp B/P (MAP) Pulse Ox O2 Delivery O2 Flow Rate FiO2 09/01/21 10:00 83 145/69 09/01/21 07:00 98.1 20 98 Nasal Cannula 2.0 98.1 Weight Weight [ ] Input and Output Intake and Output Intake and Output 09/01/21 07:00 Intake Total 800 ml Output Total 1000 ml Balance -200 ml Intake Oral 800 ml Output Urine Total 1000 ml # Bowel Movements 1 Laboratory Labs Laboratory Tests Test 09/01/21 03:20 Triglycerides Level 142 mg/dL (0-150) Cholesterol Level 147 mg/dL (0-200) LDL Cholesterol, Calculated 83 mg/dL (0-100) VLDL Cholesterol, Calculated 28 mg/dL (0-40) Non-HDL Cholesterol Calculated 111 mg/dL (0-129) HDL Cholesterol 36 mg/dL (40-60) Cholesterol/HDL Ratio 4.1 Microbiology Micro Microbiology 08/30/21 Blood Culture - Preliminary, Resulted NO GROWTH AFTER 1 DAY Physical Exam HEENT: Neck Supple W Full Motion Chest: Symmetric LUNGS: Other (diminished bases) Heart: RRR Abdomen: Soft N/T, Other (obese) Extremities: No Edema, Other (chronic venous stasis changes ) Neurology: alert, oriented, follow commands Assessment Assessment 1. Chest pain, mixed features. AMI ruled out. Echocardiogram is unremarkable. 2. CAD; CTA chest noted with coronary artery calcifications 2. Hypertensive urgency; now controlled 3. Hyperlipidemia; statin 4. Peripheral neuropathy 5. Abnormal CT chest; noted with ILD, and occluded SVC- possibly chronic Recommendations ASA, statin therapy Outpatient ischemic evaluation as arranged Follow up in our office with Dr. Bunch as scheduled. Justicifation of Admission Dx: Justifications for Admission: Justification of Admission Dx: Yes Comments: Chest pain Hypertensive urgency OCTAVIANO BUNCH MD 09/02/21 1024: CARDIO Progress Notes Plan Plan Late entry for 09/01/2021 Patient seen and examined. Agree with above nurse practitioner note. Echocardiogram is unremarkable. Start oxygen therapy per pulmonary service. Outpatient ischemic evaluation CRISTIANKRISTI CRUZ MAGDALENO Sep 01, 2021 10:47 OCTAVIANO BUNCH MD Sep 02, 2021 10:24
[2021-09-01 11:00] VITALS: BP 127/61
--- NOTE | 2021-09-01 11:54 | SNU/HH DC ---
DISCHARGE WITH HOME HEALTH DISCHARGE INFORMATION: Discharge Date: Sep 01, 2021 Final Diagnosis: acute hypoxia pneumnia interstitial lung disease back injury 30 years ago, on walker at baseline, disabled since age 30 Problems Medical Problems: (1) Chest pain Status: Acute (2) Pleural effusion associated with pulmonary infection Status: Acute Condition on Discharge: Stable CODE STATUS: Code Status: Full HOME HEALTH: Face to Face: I certify this patient is under my care and that I, had a face to face encounter that meets the physician face to face encounter requirements with this patient on 09/01 Medical Complications: Pneumonia, Other (interstitial lung disease) Assisted For: Admin/Educate Injections, Assess Cardiopulm Status RN For Eval/Treatment: Yes Physical Therapy For: Evalulation/Treatment Occupational Therapy For: Evaluation/Treatment Pt Meets Homebound Status: Fatigue w/ amb., Other: (new hypoxia, oxygen with walker) POST DISCHARGE ORDERS: Activity Instructions for Disc: No restrictions, Activity as tolerated Weight Bearing Status after Di: No restrictions, As tolerated DIET AFTER DISCHARGE: Regular FOLLOW-UP: Follow up with: primary care Follow Up With: pako 2 mos TREATMENT/EQUIPMENT ORDERS: Adaptive Equipment Issued: Front wheeled walker Discharge Respiratory Equipmen: Oxygen CERTIFICATION STATEMENT: Certification Statement: Certification Statement: Based on the above finding, I certify that this patient is confined to the home and needs intermittent jail care, physical therapy and/or speech therapy, or continues to need occupational therapy.~ This patient is under my care, and I have initiated the establishment of the plan of care.~ This patient will be followed by myself or a community physician who will periodically review the plan of care. Home Meds Active Scripts Tamsulosin Hcl (FLOMAX) 0.4 Mg Cap.er.24h, 0.4 MG PO DAILY for bph for 30 Days, #30 CAP.SR 3 Refills Prov:CORNELL BERNARDO MD 08/31/21 Reported Medications Acetaminophen (TYLENOL) 325 Mg Tablet, 500 MG PO PRN Q6HRS PRN for PAIN, TAB 08/30/21 Aspirin (ASPIRIN) 81 Mg Tab.chew, 81 MG PO DAILY for Heart health, TAB.CHEW 08/30/21 Tizanidine Hcl (TIZANIDINE HCL) 4 Mg Capsule, 4 MG PO BID PRN for MUSCLE SPASMS, CAP 08/30/21 Amlodipine Besylate (AMLODIPINE BESYLATE) 5 Mg Tablet, 5 MG PO DAILY for HTN, TAB 08/30/21 Simvastatin (SIMVASTATIN) 20 Mg Tablet, 20 MG PO HS for FOR CHOLESTEROL, #30 TAB 0 Refills 08/30/21 Triamterene/Hydrochlorothiazid (TRIAMTERENE-HCTZ 37.5-25 MG TB) 1 Each Tablet, 1 TAB PO DAILY for HTN, #30 TAB 5 Refills 08/30/21 Lisinopril (LISINOPRIL) 20 Mg Tablet, 20 MG PO DAILY for FOR HYPERTENSION, #30 TAB 0 Refills 08/30/21 MIHAELA BUI MD Sep 01, 2021 11:54
--- NOTE | 2021-09-01 11:58 | PDOC3 ---
Discharge Summary Visit Information Date of Admission: Aug 30, 2021 Date of Discharge: Sep 01, 2021 Final Diagnosis acute hypoxia pneumonia, viral interstitial lung disease back injury 30 years ago, on walker at baseline, disabled since age 30 Problems Medical Problems: (1) Chest pain Status: Acute (2) Pleural effusion associated with pulmonary infection Status: Acute Brief Hospital Course Allergies Allergies Coded Allergies Type Severity Reaction Last Updated Verified No Known Drug Allergies 08/30/21 No Vital Signs Vital Signs Date Time Temp Pulse Resp B/P (MAP) Pulse Ox O2 Delivery O2 Flow Rate FiO2 09/01/21 11:00 99.0 93 20 127/61 (83) 98 Nasal Cannula 2.0 99.0 Lab Results Laboratory Tests Test 08/30/21 13:25 08/30/21 13:30 08/30/21 13:50 08/30/21 14:58 Coronavirus (COVID-19)(PCR) Not detected (NOT DETECTD) Influenza Type A Antigen Negative (NEGATIVE) Influenza Type B Antigen Negative (NEGATIVE) SARS-CoV-2 Antigen (Rapid) Negative (NEGATIVE) Troponin I High Sensitivity 16 ng/L (4-75) Urine Collection Type Unknown Urine Color Yellow Urine Clarity Clear Urine pH 5.0 (<5.0-8.0) Urine Specific Gibson >=1.030 (1.000-1.030) Urine Protein Negative mg/dL (NEG-TRACE) Urine Glucose (UA) Negative mg/dL (NEG) Urine Ketones (Stick) Negative mg/dL (NEG) Urine Blood Negative (NEG) Urine Nitrite Negative (NEG) Urine Bilirubin Negative (NEG) Urine Urobilinogen Dipstick 0.2 mg/dL (0.2 mg/dL) Urine Leukocyte Esterase Negative (NEG) Urine RBC 0 /HPF (0-2) Urine WBC 0 /HPF (0-4) Urine Squamous Epithelial Cells Few /LPF Urine Bacteria 0 /HPF (0-FEW) Urine Mucus Slight /LPF Urine Opiates Screen Neg (NEG) Urine Methadone Screen Neg (NEG) Urine Barbiturates Neg (NEG) Urine Phencyclidine Screen Neg (NEG) Urine Amphetamine/Methamphetamine Neg (NEG) Urine Benzodiazepines Screen Neg (NEG) Urine Cocaine Screen Neg (NEG) Urine Cannabinoids Screen Neg (NEG) Urine Ethyl Alcohol Neg (NEG) Lactic Acid Level 1.3 mmol/L (0.4-2.0) Test 08/30/21 16:20 09/01/21 03:20 Troponin I High Sensitivity 19 ng/L (4-75) Triglycerides Level 142 mg/dL (0-150) Cholesterol Level 147 mg/dL (0-200) LDL Cholesterol, Calculated 83 mg/dL (0-100) VLDL Cholesterol, Calculated 28 mg/dL (0-40) Non-HDL Cholesterol Calculated 111 mg/dL (0-129) HDL Cholesterol 36 mg/dL (40-60) Cholesterol/HDL Ratio 4.1 Laboratory Tests Test 09/01/21 03:20 Triglycerides Level 142 mg/dL (0-150) Cholesterol Level 147 mg/dL (0-200) LDL Cholesterol, Calculated 83 mg/dL (0-100) VLDL Cholesterol, Calculated 28 mg/dL (0-40) Non-HDL Cholesterol Calculated 111 mg/dL (0-129) HDL Cholesterol 36 mg/dL (40-60) Cholesterol/HDL Ratio 4.1 Brief Hospital Course Mr. Rangel is a 61 old male with no history of tobacco use or asthma, admit with chest pain and shortness of breath. He had intermittent left sided pain shooting into the arm. CT angiogram was done and showed diffuse interstitial lung changes along with some honeycombing compatible with pulmonary fibrosis. dx intestitial lung disease and hypoxia Discharge Information Condition at Discharge: Improved Follow Up: Weeks Disposition/Orders: D/C to Home w/ HH Scheduled Amlodipine Besylate (Amlodipine Besylate) 5 Mg Tablet, 5 MG PO DAILY for HTN, (Reported) Entered as Reported by: ALLISON WHITE RN on 08/30/211631 Last Action: Continued on 08/30/211644 by KIRAN MACIEL MD Aspirin (Aspirin) 81 Mg Tab.chew, 81 MG PO DAILY for Heart health, (Reported) Entered as Reported by: ALLISON WHITE RN on 08/30/211631 Last Action: Continued on 08/30/211644 by KIRAN MACIEL MD Lisinopril (Lisinopril) 20 Mg Tablet, 20 MG PO DAILY for FOR HYPERTENSION, #30 Ref 0 (Reported) Entered as Reported by: ALLISON WHITE RN on 08/30/211631 Last Action: Continued on 08/30/211644 by KIRAN MACIEL MD Simvastatin (Simvastatin) 20 Mg Tablet, 20 MG PO HS for FOR CHOLESTEROL, #30 Ref 0 (Reported) Entered as Reported by: ALLISON WHITE RN on 08/30/211631 Last Action: Continued on 08/30/211644 by KIRAN MACIEL MD Tamsulosin Hcl (Flomax) 0.4 Mg Cap.er.24h, 0.4 MG PO DAILY for bph for 30 Days, #30 Ref 3 Prescribed by: CORNELL BERNARDO MD on 08/31/211642 Triamterene/Hydrochlorothiazid (Triamterene-Hctz 37.5-25 Mg Tb) 1 Each Tablet, 1 TAB PO DAILY for HTN, #30 Ref 5 (Reported) Entered as Reported by: ALLISON WHITE RN on 08/30/211631 Last Action: Continued on 08/30/211644 by KIRAN MACIEL MD Scheduled PRN Acetaminophen (Tylenol) 325 Mg Tablet, 500 MG PO PRN Q6HRS PRN for PAIN, (Reported) Entered as Reported by: ALLISON WHITE RN on 08/30/211631 Last Action: HELD on 08/30/211644 by KIRAN MACIEL MD Tizanidine Hcl (Tizanidine Hcl) 4 Mg Capsule, 4 MG PO BID PRN for MUSCLE SPASMS, (Reported) Entered as Reported by: ALLISON WHITE RN on 08/30/211631 Last Action: Converted on 08/30/211644 by KIRAN MACIEL MD Patient Instructions Patient Instructions face to face 35 minutes Justicifation of Admission Dx: Justifications for Admission: Justification of Admission Dx: MIHAELA Enciso MD Sep 01, 2021 11:57
--- NOTE | 2021-09-01 12:32 | NUR ---
SS following up with discharge planning. SS reviewed pt chart and discussed with pt RN. Pt is currently requiring oxygen at two liters nasal canula. COVID19 negative. Discharge orders received for home with home healthcare and script received for oxygen. Script and referral phoned and faxed to [facility], ; fax [phone]. Oxygen tank provided for home. SS met with pt and discussed discharge planning and home healthcare. Pt reported that he was previously on services with [facility], ; fax [phone]. Discharge orders and referral phoned and faxed to [facility]. Pt's RN notified.
[2021-09-01 15:00] VITALS: BP 120/62
--- NOTE | 2021-09-01 16:45 | NUR ---
Discharge Note: KIRAN DIAZ [address] Discharge instructions and discharge home medications reviewed with Patient and a copy given. All questions have been answered and understanding verbalized. The following instructions and handouts were given: chest pain, O2 use at home, GERD IV's discontinued, no complications. Patient discharged to home with rebecca . Patient discharged with O2 tank, 3 L with exertion, 2L at rest All belongings taken home with patient.
== END 2021-09-01 15:50 | disposition home or self-care (01) ==
LOC: ER 10:06 → 6 SOUTH 13:45 → 6 NORTH 08-31 08:43 → 6 SOUTH 08-31 08:43
PROVIDERS: ADMIT Student in an Organized Health Care Education/Training Program; ATTEND Student in an Organized Health Care Education/Training Program
DX: I20.0 Unstable angina (principal); Z20.822 Contact with and (suspected) exposure to COVID-19; I16.0 Hypertensive urgency; I10 Essential (primary) hypertension; I82.211 Chronic embolism and thrombosis of superior vena cava; E66.9 Obesity, unspecified; E78.5 Hyperlipidemia, unspecified; G62.9 Polyneuropathy, unspecified; J12.9 Viral pneumonia, unspecified; J47.0 Bronchiectasis with acute lower respiratory infection; J84.10 Pulmonary fibrosis, unspecified; J90 Pleural effusion, not elsewhere classified; R07.89 Other chest pain; R06.00 Dyspnea, unspecified; R09.02 Hypoxemia; Z96.642 Presence of left artificial hip joint; Z79.899 Other long term (current) drug therapy; Z98.890 Other specified postprocedural states; Z79.82 Long term (current) use of aspirin; Z68.34 Body mass index [BMI] 34.0-34.9, adult
CPT/HCPCS: 36415; 71045; 71275; 80053; 80061; 80307; 81001; 83605; 83690; 83735; 83880; 84443; 84484; 85025; 87040; 87428; 93005; 93306; 94618; 96361; 96365; 96372; 96375; 97161; 97165; 97535; 99285; G0378; J0456; J0696; J1644; J7030; J7050; Q9967; U0003; G0379; C8929

== ENCOUNTER → 2021-10-11 | Outpatient (CLI) | payer MEDICARE ==
[~2021-10-11] MED LIST changes: +ACET325T9 PO; +AMLO-186 PO; +ASPI-630 PO; +LISI20TA18 PO; +REGADENOSON 0.4 MG/5 ML DISP.SYRIN. IV ONE; +SIMV20TA18 PO; +TIZA4CAP PO; +TRIA1TAB3 PO
--- NOTE | 2021-10-11 14:38 | RAD ---
MR#: [id number] Date of Study: 10/11/2021 Ordering Physician: MODESTA JETER, Referring Physician: BIANKA GONZALEZ Tech: RT Diamante Stearns) (N) APPROVED REPORT Test Type: Pharmacological Stress Nurse/Tech: Jacinta Lantigua RN Test Indications: Chest pain Cardiac History: Hypertension Medications: See Electronic Medical Record Medical History: See Electronic Medical Record Resting ECG: SR Resting Heart Rate: 84 bpm Resting Blood Pressure: 134/64mmHg Pretest Chest Pain: No chest pain Nurse/Tech Notes S1,S2 and lungs diminished in the bases. Patient wearing 3L oxygen nasal cannula, he stated he has maier d a recent episode of pneumonia. Consent: The procedure was explained to the patient in lay terms. Informed consent was witnessed. Jb eout was entered into [facility]. History and Stress Test performed by RT Daryn (R) (N) Pharm. Details Pharmacologic stress testing was performed using 0.4mg per 5ml of regadenoson given intravenously ove r 7-10 seconds. Stress Symptoms No chest pain or symptoms. POST EXERCISE Reason for Termination: Infusion complete Target HR: No Max HR: 122 bpm 89% of Maximum Predicted HR: 136 bpm Max Blood Pressure: 124/57mmHg Blood Pressure response to exercise: Normal blood pressure response during stress. Heart Rate response to exercise: WNL Chest Pain: No. Arrhythmia: No. ST Change: No. INTERPRETATION Stress EKG Conclusion: Baseline EKG showed sinus rhythm. No ischemic changes at peak stress. No arr hythmias. Imaging Protocol IMAGE PROTOCOL: Rest Tc-99m/stress Tc-99m 1 day Rest: Stress: Viability: Radiopharm.Tc99m EbvvyexvoNp21q Sestamibi Ojls31xTa 31mCi Duration 15min. 10min. Img Date 10/11/2021 10/11/2021 Inj-Img Suie27eqv. 60min. Rest Admin Site:IV - Right AntecubitalAdministrator:GITA Christensen, ARRT (R)(N) Stress Admin Site: IV - Right AntecubitalAdministrator: Jackie Pretty, RT (R)(N) STRESS DATA End Diast. Vol.91.0mlAv. Heart Zaql247.0bpm End Syst. Vol.12.0mlCO Index BSA0.0L/min Myocardial Flrn397.0gEject. Svekyipj46.0% Stress Rates Pk. Fill Rate5.18EDV/secLVtime Pk. Fill 164.76msec Pk. Empty Rate7.62ESV/secLVtime Pk. Orkfk531.29msec /3 Pk. Fill1.48EDV/sec Stress Scores Regional WT0.00Summed WT1.00 Regional WM0.00Summed WM1.00 Study quality was good. Left Ventricular size was Normal at Rest and Stress. Lung uptake was . Left Ventricular ejection fraction is >80%. The rest and stress images show normal perfusion, normal contraction and thickening. LV Perf. Quant 17 Seg. SSS4.00 17 Seg. SRS6.50 17 Seg. SDS1.00 Stress Defect Extent (% LAD)0.30Rest Defect Extent (% LAD)15.00Rev. Defect Extent (% LAD)0.00 Stress Defect Extent (% LCX) 38.80Rest Defect Extent (% LCX)48.15Rev. Defect Extent (% LCX)1.25 Stress Defect Extent (% RCA)0.00Rest Defect Extent (% RCA)0.00Rev. Defect Extent (% RCA)0.00 Stress Defect Extent (% MOMO)7.70Rest Defect Extent (% MOMO)14.65Rev. Defect Extent (% MOMO)0.20 Conclusion 1. Regadenoson cardioisotope stress test did not show any evidence of ischemia or infarct. 2. Normal left ventricular systolic function with ejection fraction calculated at >80%. 3. Low risk for cardiac events. Signed by : Modesta Jeter, Electronically Approved : 10/11/2021 14:38:14
== END ==
LOC: NM 08:44
PROVIDERS: ATTEND Internal Medicine Cardiovascular Disease
DX: R07.9 Chest pain, unspecified (principal)
CPT/HCPCS: 78452; 93017; A9500; J2785